=== PATIENT | male | born 1950 | race Caucasian/White ===

== ENCOUNTER 2017-09-03 19:18 | Emergency (ER) | payer MEDICARE, BC ==
[~2017-09-03] VITALS: Ht 177.8 cm; Wt 72.5 kg
[~2017-09-03 19:18] MED LIST: METO-335 PO; PANT40TA4 PO
[2017-09-03 19:32] VITALS: Ht 177.8 cm; Wt 72.5 kg
[2017-09-03] MEDS ORDERED: IPRATROPIUM (NEB) 0.5 MG/2.5 ML AMP INH STA (23:13)
[2017-09-03] MEDS ORDERED: ALBUTEROL 0.5% (NEB) 2.5 MG/0.5 ML AMP INH STA (23:13)
[2017-09-03] MEDS ORDERED: METHYLPREDNISOLONE 125 MG INJ IV STA (23:13)
--- NOTE | 2017-09-03 23:18 | ERD ---
ER Documentation Chief Complaint Chief Complaint cough and chest painx 1 day. runny nose, afebrile. +smoker HPI This is a 66-year-old gentleman, smoker who presents the emergency room with multiple complaints including runny nose, dry nonproductive cough that is constant and persistent with chest pain that is usually worse with coughing, nonpleuritic. The patient denies any fevers at home. He denies any shortness of breath when laying flat, no lower extremity swelling and no pleuritic pain. No recent travel sick contacts or antibiotics. The patient states that he did not smoke today because he was coughing. He states that he has never been diagnosed with COPD or emphysema. ROS All systems reviewed and are negative except as per history of present illness. Medications Home Meds Active Scripts Prednisone* (Prednisone*) 20 Mg Tab, 40 MG PO DAILY for 4 Days, TAB Prov:MIGEL OLIVARES MD 09/04/17 Hydrocodone Bit/Homatrop Me-Br ([place] 5-1.5 mg Tablet) 1 Each Tablet, 1 EACH PO TID Y for COUGH, #12 TAB Prov:MIGEL OLIVARES MD 09/04/17 Oseltamivir Phosphate* (Tamiflu*) 75 Mg Capsule, 75 MG PO BID for 5 Days, CAP Prov:MIGEL OLIVARES MD 09/04/17 Azithromycin* (Zithromax*) 250 Mg Tablet, 250 MG PO .ZPACK DIRECTED, #6 TAB TAKE 500 MG (2 TABS) THE FIRST DAY THEN 250 MG (1 TAB) DAYS 2-5 Prov:MIGEL OLIVARES MD 09/04/17 Albuterol Sulfate* (Ventolin HFA*) 18 Gm Hfa.aer.ad, 2 PUFF INHALATION Q4H, #1 INHALER Prov:MIGEL OLIVARES MD 09/04/17 Metoprolol Succinate* (Toprol XL*) 25 Mg Tabsr, 25 MG PO BID for 30 Days Prov:SCARLET DORANTES 10/25/15 Pantoprazole* (Pantoprazole*) 40 Mg Tabec, 40 MG PO BID for 30 Days Prov:SCARLET DORANTES 10/25/15 Allergies Allergies: Coded Allergies: No Known Drug Allergy (Verified Allergy, Unknown, 05/19/08) PMhx/Soc History of Surgery: No Hx Respiratory Disorders: No Hx Cardiac Disorders: Yes (HTN) Hx Psychiatric Problems: No Hx Miscellaneous Medical Probl: No Hx Alcohol Use: No (REFUSED TO ASWER) Hx Substance Use: No (REFUSED TO ASWER) Hx Tobacco Use: No (PT REFUSED TO ASWER) FmHx Family History: No diabetes Physical Exam Vitals Vital Signs Date Time Temp Pulse Resp B/P Pulse Ox O2 Delivery O2 Flow Rate FiO2 09/04/17 00:44 94 Room Air 09/03/17 23:28 Nasal Cannula 2 09/03/17 23:28 Nasal Cannula 2.0 09/03/17 23:25 94 24 95 21 09/03/17 19:32 98.7 104 18 154/106 95 Physical Exam General: Coughing but talking in full sentences, slight tachypnea Head: Normocephalic, atraumatic. Eyes: Pupils equally reactive, EOM intact ENT: Moist mucous membranes Neck: Supple, no lymphadenopathy Respiratory: Slight tachypnea, wheezing diffusely but good aeration, no respiratory distress Cardiovascular: RRR, no murmurs, rubs, or gallops Abdominal: Soft, non-tender, non-distended, no peritoneal signs : Deferred MSK: No edema, no unilateral swelling, 5/5 strength Neurologic: Alert and oriented, moving all extremities, normal speech, no focal weakness, no cerebellar signs Skin: No rash Psych: Normal mood Result Diagram: 09/03/17 2320 09/03/17 2320 Results 24 hrs Laboratory Tests Test 09/03/17 23:20 White Blood Count 9.310^3/ul Red Blood Count 4.2210^6/ul Hemoglobin 13.6g/dl Hematocrit 40.1% Mean Corpuscular Volume 95.0fl Mean Corpuscular Hemoglobin 32.2pg Mean Corpuscular Hemoglobin Concent 33.9g/dl Red Cell Distribution Width 14.2% Platelet Count 49801^3/UL Mean Platelet Volume 10.0fl Neutrophils % 74.9% Lymphocytes % 12.0% Monocytes % 11.5% Eosinophils % 1.0% Basophils % 0.3% Nucleated Red Blood Cells % 0.0/100WBC Neutrophils # 7.010^3/ul Lymphocytes # 1.110^3/ul Monocytes # 1.110^3/ul Eosinophils # 0.110^3/ul Basophils # 0.010^3/ul Nucleated Red Blood Cells # 0.010^3/ul Sodium Level 141mmol/L Potassium Level 4.4mmol/L Chloride Level 105mmol/L Carbon Dioxide Level 24mmol/L Anion Gap 16 Blood Urea Nitrogen 18mg/dl Creatinine 0.98mg/dl Glucose Level 106mg/dl Calcium Level 9.3mg/dl Troponin I < 0.012ng/ml Current Medications Medications (Trade) Dose Ordered Sig/[place] Route PRN Reason Start Time Stop Time Status Last Admin Dose Admin Albuterol (Proventil 0.5% (Neb)) 10 mg ONCE STAT INH 09/03/17 23:13 09/03/17 23:14 DC 09/03/17 23:25 Ipratropium [place] (Atrovent 0.02% (Neb)) 1 mg ONCE STAT INH 09/03/17 23:13 09/03/17 23:14 DC 09/03/17 23:25 Methylprednisolone Sodium Succinate (Solu-Medrol) 125 mg ONCE STAT IV 09/03/17 23:13 09/03/17 23:14 DC 09/03/17 23:25 Acetaminophen/ Hydrocodone Bitart 5 ml 5 ml ONCE ONCE PO 09/04/17 01:30 09/04/17 01:31 DC 09/04/17 01:57 Sodium Chloride (NS) 1,000 ml @ 1,000 mls/hr Q1H STAT IV 09/04/17 01:11 09/04/17 02:10 DC 09/04/17 01:13 Procedures/MDM EKG, MONITORS, & DIAGNOSTIC IMAGING: EKG: I reviewed and interpreted a 12-lead EKG. Rhythm: Normal sinus rhythm Ectopy: None Intervals: No abnormalities ST segments: No elevations or depressions T waves: No contiguous inversions Chest x-ray: Chest x-ray: I reviewed and interpreted a 1 view of the chest Mediastinum: No enlargement Cardiac silhouette: No cardiomegaly Airspace: Clear lung eckert bilaterally without evidence of pneumothorax Bones: No evidence of fracture LAB INTERPRETATION: No leukocytosis, negative troponin MEDICAL DECISION MAKING: The patient likely has undiagnosed COPD or emphysema given his lifelong smoking history. The patient is wheezing diffusely. This is likely a viral process triggering COPD or emphysema exacerbation. The patient will benefit from breathing treatment and steroids. Low threshold for antibiotics. Chest x-ray would be appropriate. The patient describes chest pain but only with coughing and this is most likely musculoskeletal and secondary to the cough. Low concern for pulmonary embolism or acute coronary syndrome however given the patient's age I do believe an EKG and troponin would be reasonable. The patient has had 24-48 hours of constant symptoms therefore I do not believe serial enzymes or inpatient hospitalization for cardiac workup is necessary. ER COURSE: The patient was given an hour-long. He was given Solu-Medrol. Smoking Cessation: I had a greater than 3 minute conversation with the patient regarding smoking cessation. We discussed multiple alternatives. The patient had tachycardia after the breathing treatment. He was given a liter of saline and cough medication. The patient's tachycardia was initially 120 and is now 104. The patient is feeling better. His lung exam is improving. The patient at this point have no evidence of pneumonia on chest x- ray. He has no leukocytosis. No evidence of cardiac process. At this point I feel the patient is safe for outpatient management. I discussed return precautions the patient verbalized understanding. I kept the patient and/or family informed of laboratory and diagnostic imaging results throughout the emergency room course. DISPOSITION PLAN: We discussed follow up with the patient's primary care doctor within 24 to 48 hours as needed. We also discussed return to the emergency room for worsening symptoms or worsening condition. Outpatient referral: [None required] Discharge Medications: The patient will be given albuterol, Tamiflu, azithromycin, prednisone Departure Diagnosis: Primary Impression: COPD exacerbation Condition: Stable MIGEL OLIVARES MD Sep 03, 2017 23:18
[2017-09-03 23:41] LABS: BASOPHILS % 0.3 % (0.0-2.0); EOSINOPHILS # 0.1 10^3/ul (0.0-0.5); HEMATOCRIT 40.1 % (42.0-52.0); HEMOGLOBIN 13.6 g/dl (14.0-18.0); LYMPHOCYTES # 1.1 10^3/ul (0.8-2.9); MEAN CORPUSCULAR HEMOGLOBIN 32.2 pg (29.0-33.0); MEAN CORPUSCULAR HGB CONC 33.9 g/dl (32.0-37.0); MONOCYTE # 1.1 10^3/ul (0.3-0.9); MONOCYTES % 11.5 % (0.0-11.0); NEUTROPHILS % 74.9 % (39.0-77.0); PLATELET COUNT 231 10^3/UL (140-415); RED BLOOD COUNT 4.22 10^6/ul (4.70-6.10); RED CELL DISTRIBUTION WIDTH 14.2 % (11.5-14.5); WHITE BLOOD COUNT 9.3 10^3/ul (4.8-10.8)
[2017-09-03 23:58] LABS: ANION GAP 16 (8-16); BLOOD UREA NITROGEN 18 mg/dl (7-20); CALCIUM 9.3 mg/dl (8.4-10.2); CARBON DIOXIDE 24 mmol/L (21-31); CHLORIDE 105 mmol/L (97-110); CREATININE 0.98 mg/dl (0.61-1.24); GLUCOSE 106 mg/dl (70-220); POTASSIUM 4.4 mmol/L (3.5-5.1); SODIUM 141 mmol/L (135-144)
--- NOTE | 2017-09-04 00:06 | RADRPT ---
PROCEDURE: XR Chest. CLINICAL INDICATION: Asthma exacerbation. Shortness of breath. TECHNIQUE: Single frontal view. COMPARISON: October 22, 2015. FINDINGS: There is mild scarring in the left lung. The lungs are otherwise clear. Surgical clips overlie the l eft lower chest. The heart size is normal. There is no pleural effusion. There is no pneumothorax. IMPRESSION: 1. Mild scarring in the left lung. 2. Surgical clips overlying the left lower chest. 3. Otherwise unremarkable chest radiograph. RPTAT: QQ .Khoa Velez MD, MD Date Time Electronically viewed and signed by .Khoa Velez MD, MD on 09/04/2017 00:05 .R/
[2017-09-04 00:18] LABS: TROPONIN-I < 0.012 ng/ml (0.00-0.12)
[2017-09-04] MEDS ORDERED: SOD CHLORIDE 0.9% 1,000 ML IV STA (01:11)
[2017-09-04] MEDS ORDERED: ACETAMINOPHEN 325/HYDROC 7.5 15 ML CUP PO ONE (01:30)
[2017-09-04 02:00] VITALS: BP 141/78; PULSE 115; RESP 21
[2017-09-04] MEDS ORDERED: PRED20TA PO (02:07)
[2017-09-04] MEDS ORDERED: AZIT250T94 PO (02:07)
[2017-09-04] MEDS ORDERED: HYDR-3652 PO (02:07)
[2017-09-04] MEDS ORDERED: OSLT75C PO (02:07)
[2017-09-04] MEDS ORDERED: ALBU18HF INHALATION (02:07)
[2017-09-04 02:56] VITALS: TEMP 99.3
== END 2017-09-04 02:57 | disposition home or self-care (01) ==
LOC: E/R 19:18
DX: J44.1 Chronic obstructive pulmonary disease with (acute) exacerbation (principal); I10 Essential (primary) hypertension
CPT/HCPCS: 71010; 80048; 84484; 85025; 93005; 94644; 96374; 99285; J2930; J7030

== ENCOUNTER 2017-12-07 02:24 | Inpatient (IN) | END 2017-12-09 14:00 | disposition home or self-care (01) | DRG 392 ==

== ENCOUNTER 2018-08-07 05:53 | Inpatient (IN) | END 2018-08-12 16:43 | disposition home or self-care (01) | DRG 199 ==

== ENCOUNTER 2018-11-16 20:39 | Emergency (ER) | payer MEDICARE, BC ==
[~2018-11-16] VITALS: Ht 172.7 cm; Wt 78.4 kg
[~2018-11-16 20:39] MED LIST changes: +ALBU18HF INHALATION; +AMLO-147 PO; +HYDR-3601 PO; +HYDR-3671 PO; -METO-335 PO; -PANT40TA4 PO
[2018-11-16 21:29] VITALS: Ht 172.7 cm; Wt 78.4 kg
[2018-11-17] MEDS ORDERED: PIPER-TAZO 3.375 GM IV (PMX) 100 ML IVPB ONE (04:30)
[2018-11-17] MEDS ORDERED: IBUP-1542 PO (04:31)
[2018-11-17 05:21] VITALS: PULSE 83; RESP 18
[2018-11-17 05:25] VITALS: BP 156/103
--- NOTE | 2018-11-17 05:28 | ERD ---
ER Documentation Chief Complaint Chief Complaint redness pain to s/p removed pleurex drain site. drain removed 08/12 +SOB HPI This is a 8-year-old male comes in with redness and erythema a chest tube site. Patient elected to place to free with finger. He still complains of severe erythema and induration at this site. Denies any drainage. Denies any fevers or chills. Denies any nausea vomiting. Denies any other current complaints. Denies any shortness of breath. ROS All systems reviewed and are negative except as per history of present illness. Medications Home Meds Active Scripts Hydrocodone Bit-Acetaminophen (Hydrocodone Bit-APAP) 5-325MG Tablet, 1 TAB PO Q6H PRN for PAIN LEVEL 4-6, #20 TAB Prov:SCARLET DORANTES 08/12/18 Hydralazine Hcl* (Hydralazine Hcl*) 25 Mg Tab, 25 MG PO Q8, #90 TAB Prov:SCARLET DORANTES 12/09/17 Reported Medications Ibuprofen* (Ibuprofen*) 600 Mg Tablet, 600 MG PO DAILY PRN for PAIN 11/17/18 Albuterol Sulfate* (Ventolin HFA*) 18 Gm Hfa.aer.ad, 2 PUFF INHALATION Q4H, #1 INHALER 08/07/18 Amlodipine Besylate* (Amlodipine Besylate*) 10 Mg Tablet, 10 MG PO DAILY, #30 TAB 08/07/18 Allergies Allergies: Coded Allergies: No Known Drug Allergy (Unverified Allergy, Unknown, 11/17/18) PMhx/Soc Medical and Surgical Hx: pt denies Surgical Hx History of Surgery: No Anesthesia Reaction: No Hx Neurological Disorder: No Hx Respiratory Disorders: No Hx Cardiac Disorders: Yes (HTN) Hx Psychiatric Problems: No Hx Miscellaneous Medical Probl: No Hx Alcohol Use: Yes Hx Substance Use: No Hx Tobacco Use: Yes Smoking Status: Current every day smoker Physical Exam Vitals Vital Signs Date Temp Pulse Resp B/P (MAP) Pulse Ox O2 O2 Flow FiO2 Time Delivery Rate 11/17/18 156/103 05:25 (120) 11/17/18 97.8 83 18 175/106 93 Room Air 05:21 (129) 11/17/18 98.3 72 20 144/89 96 Room Air 02:00 (107) 11/16/18 98.8 86 20 149/95 94 21:29 (113) Physical Exam Const: No acute distress Head: Atraumatic Eyes: Normal Conjunctiva ENT: Normal External Ears, Nose and Mouth. Neck: Full range of motion. No meningismus. Resp: Clear to auscultation bilaterally Cardio: Regular rate and rhythm, no murmurs Abd: Soft, non tender, non distended. Normal bowel sounds Skin: Erythema and induration noted in the right mid axillary chest Ribs 4-5. Approximately 4 x 4 area of induration and erythema. No fluctuance. Noted. No drainage noted. Back: No midline or flank tenderness Ext: No cyanosis, or edema Neur: Awake and alert Psych: Normal Mood and Affect Result Diagram: 11/17/1811711/17/18117 Results 24 hrs Laboratory Tests Test 11/17/18 01:18 White Blood Count 8.4 10^3/ul Red Blood Count 4.27 10^6/ul Hemoglobin 13.4 g/dl Hematocrit 40.1 % Mean Corpuscular Volume 93.9 fl Mean Corpuscular Hemoglobin 31.4 pg Mean Corpuscular Hemoglobin Concent 33.4 g/dl Red Cell Distribution Width 14.1 % Platelet Count 219 10^3/UL Mean Platelet Volume 9.6 fl Immature Granulocytes % 0.600 % Neutrophils % 65.9 % Lymphocytes % 20.6 % Monocytes % 9.9 % Eosinophils % 2.5 % Basophils % 0.5 % Nucleated Red Blood Cells % 0.0 /100WBC Immature Granulocytes # 0.050 10^3/ul Neutrophils # 5.5 10^3/ul Lymphocytes # 1.7 10^3/ul Monocytes # 0.8 10^3/ul Eosinophils # 0.2 10^3/ul Basophils # 0.0 10^3/ul Nucleated Red Blood Cells # 0.0 10^3/ul Sodium Level 141 mmol/L Potassium Level 4.0 mmol/L Chloride Level 104 mmol/L Carbon Dioxide Level 26 mmol/L Anion Gap 11 Blood Urea Nitrogen 12 mg/dl Creatinine 0.75 mg/dl Est Glomerular Filtrat Rate mL/min > 60 mL/min Glucose Level 100 mg/dl Calcium Level 9.6 mg/dl Total Bilirubin 0.5 mg/dl Direct Bilirubin 0.00 mg/dl Indirect Bilirubin 0.5 mg/dl Aspartate Amino Transf (AST/SGOT) 31 IU/L Alanine Aminotransferase (ALT/SGPT) 23 IU/L Alkaline Phosphatase 70 IU/L Total Protein 7.5 g/dl Albumin 3.9 g/dl Globulin 3.60 g/dl Albumin/Globulin Ratio 1.08 Lipase 351 U/L Current Medications Medications Dose Sig/[place] Start Time Status Last (Trade) Ordered Route PRN Stop Time Admin Dose Reason Admin Piperacillin 100 ml @ ONCE ONCE 11/17/18 DC 11/17/18 Sod/ 200 mls/hr IVPB 04:30 05:13 Tazobactam 11/17/18 04:59 Sod Procedures/MDM Medical decision makin 8-year-old male with erythema and induration likely cellulitis of the chest wall. At this point is clinically stable afebrile with normal white count is stable for trial of outpatient management. Patient will be discharged home with Bactrim and Keflex. He is to follow-up with his primary care physician to primary care for worsening symptoms. Departure Diagnosis: Primary Impression: Cellulitis Site of cellulitis: unspecified site Qualified Codes: L03.90 - Cellulitis, unspecified Condition: Stable NICOLE CALLAWAY Nov 17, 2018 05:28
[2018-11-17] MEDS ORDERED: AMOX1TAB10 PO (05:29)
[2018-11-17] MEDS ORDERED: SULF1TAB31 PO (05:29)
== END 2018-11-17 05:49 | disposition home or self-care (01) ==
LOC: E/R 20:39
DX: L03.313 Cellulitis of chest wall (principal); I10 Essential (primary) hypertension; F17.210 Nicotine dependence, cigarettes, uncomplicated
CPT/HCPCS: 36415; 71250; 80053; 83690; 85025; 87040; 96365; 99285; J2543

== ENCOUNTER 2018-12-27 20:36 | Inpatient (IN) | payer MEDICARE, BC ==
[~2018-12-27] VITALS: Ht 182.9 cm; Wt 73.5 kg
[~2018-12-27 20:36] MED LIST changes: +AMOX1TAB10 PO; +IBUP-1542 PO; +SULF1TAB31 PO
[2018-12-27] MEDS ORDERED: ALBUTEROL 0.5% (NEB) 2.5 MG/0.5 ML AMP INH STA (20:43)
[2018-12-27] MEDS ORDERED: METHYLPREDNISOLONE 125 MG INJ IV STA (20:43)
--- NOTE | 2018-12-27 20:46 | ERD ---
ER Documentation Chief Complaint Chief Complaint HPI 68-year-old man with a history of COPD brought in by EMS from home for shortness of breath, difficulty breathing. He states he has been using albuterol pump at home without relief. He has a recent history of left pneumothorax status post thoracostomy tube removal a few weeks ago. He denies chest pain, no fevers or chills, no vomiting or diarrhea. Patient was transported here tachycardic tachypnea, dyspneic ROS All systems reviewed and are negative except as per history of present illness. Medications Home Meds Active Scripts Sulfamethoxazole/Trimethoprim* (Bactrim Ds* Tablet) 1 Each Tablet, 1 TAB PO BID, #14 TAB Prov:NICOLE CALLAWAY 11/17/18 Amoxicillin/Potassium Clav (Amox-Clav 875-125 mg Tablet) 875-125 mg Tab, 1 TAB PO BID for 7 Days, #14 TAB Prov:NICOLE CALLAWAY 11/17/18 Hydrocodone Bit-Acetaminophen (Hydrocodone Bit-APAP) 5-325MG Tablet, 1 TAB PO Q6H PRN for PAIN LEVEL 4-6, #20 TAB Prov:SCARLET DORANTES 08/12/18 Hydralazine Hcl* (Hydralazine Hcl*) 25 Mg Tab, 25 MG PO Q8, #90 TAB Prov:SCARLET DORANTES 12/09/17 Reported Medications Ibuprofen* (Ibuprofen*) 600 Mg Tablet, 600 MG PO DAILY PRN for PAIN 11/17/18 Albuterol Sulfate* (Ventolin HFA*) 18 Gm Hfa.aer.ad, 2 PUFF INHALATION Q4H, #1 INHALER 08/07/18 Amlodipine Besylate* (Amlodipine Besylate*) 10 Mg Tablet, 10 MG PO DAILY, #30 TAB 08/07/18 Allergies Allergies: Coded Allergies: No Known Drug Allergy (Unverified Allergy, Unknown, 11/17/18) PMhx/Soc COPD, recent left-sided tension pneumothorax status post thoracostomy tube removal, hypertension, gastritis History of Surgery: No Anesthesia Reaction: No Hx Neurological Disorder: No Hx Respiratory Disorders: No Hx Cardiac Disorders: Yes (HTN) Hx Psychiatric Problems: No Hx Miscellaneous Medical Probl: No Hx Alcohol Use: Yes Hx Substance Use: No Hx Tobacco Use: Yes Physical Exam Vitals Vital Signs Date Temp Pulse Resp B/P (MAP) Pulse Ox O2 O2 Flow FiO2 Time Delivery Rate 12/27/18 116 22 98 Nasal 3.0 21:16 Cannula 12/27/18 3.0 21:16 12/27/18 Nasal 20:48 Cannula 12/27/18 98.7 85 19 181/138 94 20:42 (152) Physical Exam Const: Well-developed well-nourished, anxious, dyspneic, tachycardic, afebrile HEENT: Dry mucous membranes, pink conjunctive a, no cervical spine deformity or tenderness Resp: Poor breath sounds bilaterally, no crackles Cardio: Tachycardic and regular Abd: Soft, non tender, non distended. Normal bowel sounds Skin: No petechiae or rashes Back: No midline or flank tenderness Ext: No cyanosis, or edema. Calves symmetrical Neur: Awake and alert x3, no focal deficits or facial asymmetry, tremulous, pupils equal round reactive to light, no focal deficits Psych: Tremulous and anxious Result Diagram: 12/27/18211912/27/182049 Results 24 hrs Laboratory Tests Test 12/27/18 20:43 12/27/18 20:50 12/27/18 21:20 Blood Gas Specimen Source Blood arterial Arterial Blood Date Drawn 12/27/2018 8:56:56 PM Arterial Blood pH 7.428 (Temp corrected) Arterial Blood pCO2 41.3 mmhg (Temp correct) Arterial Blood pO2 72.0 mmHG (Temp corrected) Arterial Blood HCO3 26.7 mmol/L Arterial Blood Base Excess 2.1 mmol/L Arterial Blood 94.6 mmHG Oxygen Saturation Pancho Test ACCEPTAB Arterial Blood Gas Left Radial Puncture Site Arterial 0.5 % Blood Carboxyhemoglobin Arterial Blood 0.3 % Methemoglobin Blood Gas A-a O2 93.4 mmHg Differential Oxyhemoglobin Percent 93.8 % Blood Gas Temperature 37.0 C Blood Gas Actual 20 Respiration Rate Blood Gas Modality NASAL CANNULA FiO2 30.0 % Blood Gas Notified Car PEDROZA RCP Blood Gas Notified Time 12/27/2018 9:04:23 PM Sodium Level 144 mmol/L Potassium Level 4.5 mmol/L Chloride Level 100 mmol/L Carbon Dioxide Level 23 mmol/L Anion Gap 21 Blood Urea Nitrogen 18 mg/dl Creatinine 1.01 mg/dl Est Glomerular Filtrat > 60 mL/min Rate mL/min Glucose Level 145 mg/dl Calcium Level 10.5 mg/dl Total Bilirubin 0.8 mg/dl Direct Bilirubin 0.00 mg/dl Indirect Bilirubin 0.8 mg/dl Aspartate Amino 52 IU/L Transf (AST/SGOT) Alanine 40 IU/L Aminotransferase (ALT/SGPT ) Alkaline Phosphatase 117 IU/L Troponin I < 0.012 ng/ml B-Type Natriuretic Peptide 42 PG/ML Total Protein 9.1 g/dl Albumin Pending Globulin 4.30 g/dl Albumin/Globulin Ratio 1.11 Lipase 147 U/L White Blood Count 10.7 10^3/ul Red Blood Count 4.70 10^6/ul Hemoglobin 14.7 g/dl Hematocrit 43.8 % Mean Corpuscular Volume 93.2 fl Mean Corpuscular 31.3 pg Hemoglobin Mean Corpuscular 33.6 g/dl Hemoglobin Concent Red Cell Distribution 13.7 % Width Platelet Count 266 10^3/UL Mean Platelet Volume 8.8 fl Immature Granulocytes % 0.300 % Neutrophils % 84.4 % Lymphocytes % 11.5 % Monocytes % 3.2 % Eosinophils % 0.0 % Basophils % 0.6 % Nucleated Red Blood Cells 0.0 /100WBC % Immature Granulocytes # 0.030 10^3/ul Neutrophils # 9.1 10^3/ul Lymphocytes # 1.2 10^3/ul Monocytes # 0.3 10^3/ul Eosinophils # 0.0 10^3/ul Basophils # 0.1 10^3/ul Nucleated Red Blood Cells 0.0 10^3/ul # Current Medications Medications Dose Sig/[place] Start Time Status Last (Trade) Ordered Route PRN Stop Time Admin Dose Reason Admin Albuterol 10 mg ONCE STAT 12/27/18 DC 12/27/18 (Proventil INH 20:43 21:01 0.5% (Neb)) 12/27/18 20:57 125 mg ONCE STAT 12/27/18 DC 12/27/18 Methylprednis IV 20:43 21:08 olone Sodium 12/27/18 20:57 Succinate (Solu-Medrol) Lorazepam 1 mg ONCE ONCE 12/27/18 DC 12/27/18 (Ativan) IV 21:00 21:08 12/27/18 21:01 Aspirin 162 mg ONCE ONCE 12/27/18 DC 12/27/18 (Aspirin) PO 21:00 21:10 12/27/18 21:01 Sodium 500 ml @ Q1H STAT 12/27/18 12/27/18 Chloride 500 mls/hr IV 20:51 21:01 12/27/18 21:50 IV Flush 3 ml PER 12/27/18 (NS 3 ml) PROTOCOL IV 21:30 Ondansetron 4 mg Q6H PRN 12/27/18 HCl (Zofran IV 21:30 Inj) NAUSEA/VOMITI NG 650 mg Q6H PRN 12/27/18 Acetaminophen PO .PAIN 1-3 21:30 (Tylenol OR TEMP Tab) Morphine 2 mg Q4H PRN 12/27/18 Sulfate IV .PAIN 21:30 (morphine) 7-10 Famotidine 20 mg Q12 IV 12/28/18 (Pepcid Iv) 09:00 Enoxaparin 30 mg DAILY SC 12/28/18 Sodium 09:00 (Lovenox) Albuterol 1.25 mg Q6H RESP 12/27/18 (Proventil THERAPY PRN 21:30 0.083% (Neb)) HHN shortness of breath 60 mg Q12 IV 12/28/18 Methylprednis 09:00 olone Sodium Succinate (Solu-Medrol) Procedures/MDM IV line was established patient was placed on director of cardiac rehabilitation rhythm strip revealed a sinus tachycardia at 130 bpm. Patient was afebrile. EKG performed, read by me revealed a sinus tachycardia at 122 bpm, normal axis, narrow QRS complex, no concerning ST elevations or depressions noted. 1 view chest x-ray performed, read by me revealed atelectatic changes bilaterally, no acute infiltrates, no pneumothorax. I administered lorazepam 1 mg IV for anxiety, albuterol 10 mg via nebulizer, methylprednisolone 125 mg IV x1, aspirin 162 mg p.o. for cardioprotective measures, and 500 cc normal saline IV Critical Care: Time: 39 minutes, this was time separate from other billable procedures. Treatments/Evaluations: Close monitoring and treatment of unstable vital signs, cardiorespiratory, and neurologic status, while maintaining tight balance of fluid, respiratory, and cardiac interventions. CBC was normal, electrolytes revealed dehydration with increased BUN creatinine ratio, liver function tests normal, troponin negative, BNP low. ABG performed, read by me revealed a pH of 7.43, PCO2 41, PO2 72. ABG normal. Patient admitted to telemetry setting for continued medical management and bronchodilator therapy. Departure Diagnosis: Primary Impression: COPD (chronic obstructive pulmonary disease) COPD type: COPD with acute exacerbation Qualified Codes: J44.1 - Chronic obstructive pulmonary disease with (acute) exacerbation Additional Impression: Dehydration Condition: MEGHAN Sepulveda MD Dec 27, 2018 20:46
[2018-12-27] MEDS ORDERED: SOD CHLORIDE 0.9% 500 ML IV STA (20:51)
[2018-12-27] MEDS ORDERED: ASPIRIN 81 MG TAB PO ONE (21:00)
[2018-12-27] MEDS ORDERED: LORAZEPAM 2 MG INJ IV ONE (21:00)
[2018-12-27] MEDS ORDERED: morphine 2 MG INJ IV PRN (21:30)
[2018-12-27] MEDS ORDERED: ACETAMINOPHEN 325 MG TAB PO PRN (21:30)
[2018-12-27] MEDS ORDERED: NACL 0.9% 3 ML SYG IV SCH (21:30)
[2018-12-27] MEDS ORDERED: ALBUTEROL 0.083% (NEB) 2.5 MG/3 ML AMP HHN PRN (21:30)
[2018-12-27] MEDS ORDERED: ONDANSETRON 4 MG INJ IV PRN (21:30)
[2018-12-28] VITALS (10 sets, daily range): BP systolic 140–163; BP diastolic 80–97; PULSE 85–109; RESP 18–20
[2018-12-28] MEDS ORDERED: FAMOTIDINE 20 MG INJ IV SCH (09:00)
[2018-12-28] MEDS: METHYLPREDNISOLONE 125 MG INJ IV SCH ×2 (09:38→23:09)
[2018-12-28] MEDS: ENOXAPARIN 30 MG/0.3 ML SYG SC SCH (09:40)
[2018-12-28] MEDS ORDERED: LORAZEPAM 0.5 MG TAB PO PRN (13:00)
--- NOTE | 2018-12-28 13:00 | HP ---
Date/Time of Note Date/Time of Note DATE: 12/28/18 TIME: 12:58 Assessment/Plan VTE Prophylaxis Risk score (from Ns)>0 risk: 4 SCD applied (from Ns): Yes Pharmacological prophylaxis: LMWH Lines/Catheters IV Catheter Type (from Nrs): Saline Lock Assessment/Plan Hospital Course 1) COPD - continue breathing treatments and IV steroids - monitor clinically Result Diagram: 12/28/18 0540 12/28/18 0540 Results 24hrs Laboratory Tests Test 12/27/18 20:43 12/27/18 20:50 12/27/18 21:20 12/28/18 05:40 Blood Gas Blood arterial Specimen Source Arterial Blood 12/27/2018 8:56:5 Date Drawn 6 PM Arterial Blood pH 7.428 (Temp corrected) Arterial Blood 41.3 pCO2 (Temp correct) Arterial Blood 72.0 L pO2 (Temp corrected) Arterial Blood 26.7 H HCO3 Arterial Blood 2.1 Base Excess Arterial Blood 94.6 L Oxygen Saturation Pancho Test ACCEPTAB Arterial Blood Left Radial Gas Puncture Site Arterial 0.5 Blood Carboxyhemo globin Arterial Blood 0.3 Methemoglobin Blood Gas A-a O2 93.4 H Differential Oxyhemoglobin 93.8 Percent Blood Gas 37.0 Temperature Blood Gas Actual 20 Respiration Rate Blood Gas NASAL CANNULA Modality FiO2 30.0 Blood Gas Quentin [facility] Notified Whom Blood Gas 12/27/2018 9:04:2 Notified Time 3 PM Sodium Level 144 139 Potassium Level 4.5 4.1 Chloride Level 100 97 Carbon Dioxide 23 29 Level Anion Gap 21 H 13 # Blood Urea 18 19 Nitrogen Creatinine 1.01 0.82 Est Glomerular > 60 > 60 Filtrat Rate mL/min Glucose Level 145 179 Calcium Level 10.5 H 9.7 Total Bilirubin 0.8 0.8 Direct Bilirubin 0.00 0.00 Indirect 0.8 0.8 Bilirubin Aspartate Amino 52 H 37 Transf (AST/SGOT) Alanine 40 40 Aminotransferase (ALT/SGPT) Alkaline 117 85 Phosphatase Troponin I < 0.012 B-Type 42 Natriuretic Peptide Total Protein 9.1 H 7.5 # Albumin 4.8 4.1 Globulin 4.30 H 3.40 H Albumin/Globulin 1.11 1.20 Ratio Lipase 147 White Blood Count 10.7 # 6.8 # Red Blood Count 4.70 4.53 L Hemoglobin 14.7 14.3 Hematocrit 43.8 42.0 Mean Corpuscular 93.2 92.7 Volume Mean Corpuscular 31.3 31.6 Hemoglobin Mean Corpuscular 33.6 34.0 Hemoglobin Concen t Red Cell 13.7 14.0 Distribution Width Platelet Count 266 # 252 Mean Platelet 8.8 9.2 Volume Immature 0.300 0.300 Granulocytes % Neutrophils % 84.4 H 91.6 H Lymphocytes % 11.5 L 7.6 L Monocytes % 3.2 0.4 Eosinophils % 0.0 0.0 Basophils % 0.6 0.1 Nucleated Red 0.0 0.0 Blood Cells % Immature 0.030 0.020 Granulocytes # Neutrophils # 9.1 H 6.2 Lymphocytes # 1.2 0.5 L Monocytes # 0.3 0.0 L Eosinophils # 0.0 0.0 Basophils # 0.1 0.0 Nucleated Red 0.0 0.0 Blood Cells # Hemoglobin A1c 5.4 HPI/ROS Admit Date/Time Admit Date/Time Dec 27, 2018 at 21:18 Hx of Present Illness Patient with a history of COPD comes in with increasing shortness of breath. Patient has come in with the same problem in the past PMH/Family/Social Past Medical History Medications Current Medications IV Flush (NS 3 ml) 3 ml PER PROTOCOL IV ; Start 12/27/18 at 21:30 Ondansetron HCl (Zofran Inj) 4 mg Q6H PRN IV NAUSEA/VOMITING; Start 12/27/18 at 21:30 Acetaminophen (Tylenol Tab) 650 mg Q6H PRN PO .PAIN 1-3 OR TEMP; Start 12/27/18 at 21:30 Morphine Sulfate (morphine) 2 mg Q4H PRN IV .PAIN 7-10; Start 12/27/18 at 21:30 Famotidine (Pepcid Iv) 20 mg Q12 IV Last administered on 12/28/18at 09:38; Admin Dose 20 MG; Start 12/28/18 at 09:00 Enoxaparin Sodium (Lovenox) 30 mg DAILY SC Last administered on 12/28/18at 09:40; Admin Dose 30 MG; Start 12/28/18 at 09:00 Albuterol (Proventil 0.083% (Neb)) 1.25 mg Q6H RESP THERAPY PRN HHN shortness of breath; Start 12/27/18 at 21:30 Methylprednisolone Sodium Succinate (Solu-Medrol) 60 mg Q12 IV Last administered on 12/28/18at 09:38; Admin Dose 60 MG; Start 12/28/18 at 09:00 Lorazepam (Ativan) 0.5 mg Q6H PRN PO ANXIETY; Start 12/28/18 at 13:00; Status UNV Coded Allergies: No Known Drug Allergy (Unverified Allergy, Unknown, 11/17/18) Past Surgical History Past Surgical Hx: other Family History Significant Family History: no pertinent family hx Social History Smoking Status: Former smoker Exam/Review of Systems Vital Signs Vitals Vital Signs Date Temp Pulse Resp B/P (MAP) Pulse Ox O2 O2 Flow FiO2 Time Delivery Rate 12/28/18 102 10:56 12/28/18 Nasal 3.0 09:47 Cannula 12/28/18 98.9 20 140/90 95 08:01 (107) 12/28/18 27 06:22 Intake and Output 12/27/18 12/27/18 12/28/18 1515:00 23:00 07:00 IntakeIntake Total 200 ml BalanceBalance 200 ml Exam Constitutional: well developed Head: normocephalic, atraumatic Neck: supple Respiratory: diminished breath sounds Cardiovascular: regular rate and rhythm Gastrointestinal: soft, non-tender Extremities: normal pulses ILAN COPPOLA Dec 28, 2018 13:00
[2018-12-28] MEDS: FAMOTIDINE 20 MG TAB PO SCH (23:09)
[2018-12-29] VITALS (15 sets, daily range): BP systolic 134–159; BP diastolic 64–105; PULSE 55–115; RESP 18–20
[2018-12-29] MEDS: METHYLPREDNISOLONE 125 MG INJ IV SCH ×2 (09:18→22:45)
[2018-12-29] MEDS: FAMOTIDINE 20 MG TAB PO SCH ×2 (09:19→22:46)
[2018-12-29] MEDS: ENOXAPARIN 30 MG/0.3 ML SYG SC SCH (09:24)
--- NOTE | 2018-12-29 11:41 | CONS ---
Assessment/Plan Assessment/Plan Assessment/Plan (Daily) 1. Prerenal azotemia 2. acute COPD exacerbation 3. H/O COPD 4. H/o Pneumothorax s/p previous Chest tube placement 4. H/O HTN 5. H/o HL 6. H/o Smoking Plan: IV solumedrol, watch for BUN BP stable, Cardizem for rate control Cardiology has been following Will follow up . Thanks for consultation Consultation Date/Type/Reason Admit Date/Time Dec 27, 2018 at 21:18 Date of Consultation: Dec 29, 2018 Type of Consult NEPHROLOGY Reason for Consultation acute prerenal azotemia, alkalosis, Requesting Provider: JORGE HANNA MD Date/Time of Note DATE: 12/29/18 TIME: 11:41 Hx of Present Illness 68-year-old male with past medical history of COPD, hypertension who presents with progressive worsening shortness of breath of the past 10 days. Patient with cough, wheezing and shortness of breath. he gets admitted for COPD exacerbation H/o chest tube requirement before which was subsequently removed after that. He tells me he quit smoking approximately 6 months ago. Denies any current fevers or chills, dizziness. 12 point review of systems was performed with all pertinent positives and negatives mentioned above and all else is negative Constitutional: no complaints Eyes: no complaints ENT: congestion Respiratory: cough, pleuritic pain, shortness of breath Cardiovascular: no complaints Gastrointestinal: no complaints Genitourinary: no complaints Musculoskeletal: no complaints Skin: no complaints Neurologic: no complaints Endocrine: no complaints Lymphatic: no complaints Psychological: no complaints Immunologic: no complaints Past Medical History Medical History: high cholesterol, hypertension, other (anxiety, COPD, Pneumothorax ) Home Meds Active Scripts Sulfamethoxazole/Trimethoprim* (Bactrim Ds* Tablet) 1 Each Tablet, 1 TAB PO BID, #14 TAB Prov:NICOLE CALLAWAY 11/17/18 Amoxicillin/Potassium Clav (Amox-Clav 875-125 mg Tablet) 875-125 mg Tab, 1 TAB PO BID for 7 Days, #14 TAB Prov:NICOLE CALLAWAY 11/17/18 Hydrocodone Bit-Acetaminophen (Hydrocodone Bit-APAP) 5-325MG Tablet, 1 TAB PO Q6H PRN for PAIN LEVEL 4-6, #20 TAB Prov:SCARLET DORANTES 08/12/18 Hydralazine Hcl* (Hydralazine Hcl*) 25 Mg Tab, 25 MG PO Q8, #90 TAB Prov:SCARLET DORANTES 12/09/17 Reported Medications Ibuprofen* (Ibuprofen*) 600 Mg Tablet, 600 MG PO DAILY PRN for PAIN 11/17/18 Albuterol Sulfate* (Ventolin HFA*) 18 Gm Hfa.aer.ad, 2 PUFF INHALATION Q4H, #1 INHALER 08/07/18 Amlodipine Besylate* (Amlodipine Besylate*) 10 Mg Tablet, 10 MG PO DAILY, #30 TAB 08/07/18 Medications Current Medications IV Flush (NS 3 ml) 3 ml PER PROTOCOL IV ; Start 12/27/18 at 21:30 Ondansetron HCl (Zofran Inj) 4 mg Q6H PRN IV NAUSEA/VOMITING; Start 12/27/18 at 21:30 Acetaminophen (Tylenol Tab) 650 mg Q6H PRN PO .PAIN 1-3 OR TEMP; Start 12/27/18 at 21:30 Morphine Sulfate (morphine) 2 mg Q4H PRN IV .PAIN 7-10 Last administered on 12/29/18at 00:20; Admin Dose 2 MG; Start 12/27/18 at 21:30 Enoxaparin Sodium (Lovenox) 30 mg DAILY SC Last administered on 12/29/18at 09:24; Admin Dose 30 MG; Start 12/28/18 at 09:00 Albuterol (Proventil 0.083% (Neb)) 1.25 mg Q6H RESP THERAPY PRN HHN shortness of breath; Start 12/27/18 at 21:30 Methylprednisolone Sodium Succinate (Solu-Medrol) 60 mg Q12 IV Last administered on 12/29/18at 09:18; Admin Dose 60 MG; Start 12/28/18 at 09:00 Lorazepam (Ativan) 0.5 mg Q6H PRN PO ANXIETY; Start 12/28/18 at 13:00 Famotidine (Pepcid) 20 mg Q12 PO Last administered on 12/29/18at 09:19; Admin Dose 20 MG; Start 12/28/18 at 21:00 Allergies: Coded Allergies: No Known Drug Allergy (Unverified Allergy, Unknown, 11/17/18) Past Surgical History Past Surgical Hx: other (H/o Chest tube placemen tfor pneumothorax ) Family History Significant Family History: no pertinent family hx Social History Alcohol Use: none Smoking Status: Former smoker Drug Use: none Exam/Review of Systems Exam Vitals Vital Signs Date Temp Pulse Resp B/P (MAP) Pulse Ox O2 O2 Flow FiO2 Time Delivery Rate 12/29/18 97.8 100 20 145/95 97 Nasal 08:02 (112) Cannula 12/29/18 2.0 28 01:25 Intake and Output 12/28/18 12/28/18 12/29/18 1414:59 22:59 06:59 IntakeIntake Total 1200 ml 480 ml BalanceBalance 1200 ml 480 ml Constitutional: alert Psych: no complaints Head: normocephalic Eyes: nl conjunctiva Neck: supple Respiratory: congested cough, diminished breath sounds, wheezing Cardiovascular: regular rate and rhythm, nl pulses Gastrointestinal: soft, non-tender Musculoskeletal: nl extremities to inspection Extremities: normal pulses Neurological: [employer] II-XII intact, nl mental status, nl speech, nl strength Skin: nl turgor Lymph: nl lymph nodes Results Result Diagram: 12/28/1853912/28/18539 Medications Medication Current Medications IV Flush (NS 3 ml) 3 ml PER PROTOCOL IV ; Start 12/27/18 at 21:30 Ondansetron HCl (Zofran Inj) 4 mg Q6H PRN IV NAUSEA/VOMITING; Start 12/27/18 at 21:30 Acetaminophen (Tylenol Tab) 650 mg Q6H PRN PO .PAIN 1-3 OR TEMP; Start 12/27/18 at 21:30 Morphine Sulfate (morphine) 2 mg Q4H PRN IV .PAIN 7-10 Last administered on 12/29/18at 00:20; Admin Dose 2 MG; Start 12/27/18 at 21:30 Enoxaparin Sodium (Lovenox) 30 mg DAILY SC Last administered on 12/29/18at 09:24; Admin Dose 30 MG; Start 12/28/18 at 09:00 Albuterol (Proventil 0.083% (Neb)) 1.25 mg Q6H RESP THERAPY PRN HHN shortness of breath; Start 12/27/18 at 21:30 Methylprednisolone Sodium Succinate (Solu-Medrol) 60 mg Q12 IV Last admini stered on 12/29/18at 09:18; Admin Dose 60 MG; Start 12/28/18 at 09:00 Lorazepam (Ativan) 0.5 mg Q6H PRN PO ANXIETY; Start 12/28/18 at 13:00 Famotidine (Pepcid) 20 mg Q12 PO Last administered on 12/29/18at 09:19; Admin Dose 20 MG; Start 12/28/18 at 21:00 ELIZABET GRAY MD Dec 29, 2018 11:41
--- NOTE | 2018-12-29 13:20 | PN ---
Date/Time of Note Date/Time of Note DATE: 12/29/18 TIME: 13:18 Assessment/Plan VTE Prophylaxis Risk score (from Nsg)>0 risk: 4 SCD applied (from Nsg): Yes Lines/Catheters IV Catheter Type (from Nrsg): Saline Lock Assessment/Plan Assessment/Plan - new onset AFIB - New onset A tach - cardiology consut- Dr Montgomery notified - Troponins x 2 - cardiac enzyme - ekg -COPD - continue breathing treatments and IV steroids - monitor clinically Result Diagram: 12/28/18 0540 12/28/18 0540 Results 24hrs Laboratory Tests Test 12/29/18 11:48 Creatine Kinase 74 Creatine Kinase Index 2.6 Creatinine Kinase MB (Mass) 1.91 Troponin I < 0.012 Exam/Review of Systems Exam Vitals Vital Signs Date Temp Pulse Resp B/P (MAP) Pulse Ox O2 O2 Flow FiO2 Time Delivery Rate 12/29/18 97.6 94 20 159/100 96 Nasal 12:14 (119) Cannula 12/29/18 2.0 28 01:25 Intake and Output 12/28/18 12/28/18 12/29/18 1515:00 23:00 07:00 IntakeIntake Total 1200 ml 480 ml BalanceBalance 1200 ml 480 ml Results Results 24hrs Laboratory Tests Test 12/29/18 11:48 Creatine Kinase 74 Creatine Kinase Index 2.6 Creatinine Kinase MB (Mass) 1.91 Troponin I < 0.012 Medications Medication Current Medications IV Flush (NS 3 ml) 3 ml PER PROTOCOL IV ; Start 12/27/18 at 21:30 Ondansetron HCl (Zofran Inj) 4 mg Q6H PRN IV NAUSEA/VOMITING; Start 12/27/18 at 21:30 Acetaminophen (Tylenol Tab) 650 mg Q6H PRN PO .PAIN 1-3 OR TEMP; Start 12/27/18 at 21:30 Morphine Sulfate (morphine) 2 mg Q4H PRN IV .PAIN 7-10 Last administered on 12/29/18at 00:20; Admin Dose 2 MG; Start 12/27/18 at 21:30 Enoxaparin Sodium (Lovenox) 30 mg DAILY SC Last administered on 12/29/18at 09:2 4; Admin Dose 30 MG; Start 12/28/18 at 09:00 Albuterol (Proventil 0.083% (Neb)) 1.25 mg Q6H RESP THERAPY PRN HHN shortness of breath; Start 12/27/18 at 21:30 Methylprednisolone Sodium Succinate (Solu-Medrol) 60 mg Q12 IV Last administered on 12/29/18at 09:18; Admin Dose 60 MG; Start 12/28/18 at 09:00 Lorazepam (Ativan) 0.5 mg Q6H PRN PO ANXIETY; Start 12/28/18 at 13:00 Famotidine (Pepcid) 20 mg Q12 PO Last administered on 12/29/18at 09:19; Admin Dose 20 MG; Start 12/28/18 at 21:00 DERRICK ENCARNACION Dec 29, 2018 13:20
--- NOTE | 2018-12-29 14:27 | CONS ---
Assessment/Plan Assessment/Plan Hospital Course (Demo Recall) Tachyarrhythmia COPD exacerbation Hypertension Pneumothorax status post chest tube August 2018 -Cardiology consultation secondary to tachyarrhythmia. Telemetry reviewed, episodes of supraventricular tachycardia, differential includes multifocal atrial tachycardia versus atrial fibrillation versus frequent PACs. -Echocardiogram currently being performed at bedside with preliminary left ve ntricular ejection fraction 60% -Serial cardiac enzymes are negative, will start patient on calcium channel antoni, we will prophylactically give a dose of IV magnesium today and will check magnesium level in the a.m. -BNP was unremarkable in the 40s -Continue treatment of COPD -Continue telemetry monitoring Consultation Date/Type/Reason Admit Date/Time Dec 27, 2018 at 21:18 Type of Consult Cardiology Reason for Consultation Tachycardia Date/Time of Note DATE: 12/29/18 TIME: 14:17 Hx of Present Illness This is a 68-year-old male with past medical history of COPD, hypertension who presents with progressive worsening shortness of breath of the past 10 days. Patient with cough, wheezing and shortness of breath. Complains of chest discomfort with coughing. Also complains of intermittent palpitations. Symptoms have improved slightly over the past day. Patient tells me he had a chest tube least a few months ago that was later removed. He otherwise denies any cardiac history including any myocardial infarction or cardiac procedures. He tells me he quit smoking approximately 6 months ago. Denies any current fevers or chills, dizziness. 12 point review of systems was performed with all pertinent positives and negatives mentioned above and all else is negative Past Medical History COPD Hypertension Home Meds Active Scripts Sulfamethoxazole/Trimethoprim* (Bactrim Ds* Tablet) 1 Each Tablet, 1 TAB PO BID, #14 TAB Prov:NICOLE CALLAWAY 11/17/18 Amoxicillin/Potassium Clav (Amox-Clav 875-125 mg Tablet) 875-125 mg Tab, 1 TAB PO BID for 7 Days, #14 TAB Prov:NICOLE CALLAWAY 11/17/18 Hydrocodone Bit-Acetaminophen (Hydrocodone Bit-APAP) 5-325MG Tablet, 1 TAB PO Q6H PRN for PAIN LEVEL 4-6, #20 TAB Prov:SCARLET DORANTES 08/12/18 Hydralazine Hcl* (Hydralazine Hcl*) 25 Mg Tab, 25 MG PO Q8, #90 TAB Prov:SCARLET DORANTES 12/09/17 Reported Medications Ibuprofen* (Ibuprofen*) 600 Mg Tablet, 600 MG PO DAILY PRN for PAIN 11/17/18 Albuterol Sulfate* (Ventolin HFA*) 18 Gm Hfa.aer.ad, 2 PUFF INHALATION Q4H, #1 INHALER 08/07/18 Amlodipine Besylate* (Amlodipine Besylate*) 10 Mg Tablet, 10 MG PO DAILY, #30 TAB 08/07/18 Medications Current Medications IV Flush (NS 3 ml) 3 ml PER PROTOCOL IV ; Start 12/27/18 at 21:30 Ondansetron HCl (Zofran Inj) 4 mg Q6H PRN IV NAUSEA/VOMITING; Start 12/27/18 at 21:30 Acetaminophen (Tylenol Tab) 650 mg Q6H PRN PO .PAIN 1-3 OR TEMP; Start 12/27/18 at 21:30 Morphine Sulfate (morphine) 2 mg Q4H PRN IV .PAIN 7-10 Last administered on 12/29/18at 00:20; Admin Dose 2 MG; Start 12/27/18 at 21:30 Enoxaparin Sodium (Lovenox) 30 mg DAILY SC Last administered on 12/29/18at 09:24; Admin Dose 30 MG; Start 12/28/18 at 09:00 Albuterol (Proventil 0.083% (Neb)) 1.25 mg Q6H RESP THERAPY PRN HHN shortness of breath; Start 12/27/18 at 21:30 Methylprednisolone Sodium Succinate (Solu-Medrol) 60 mg Q12 IV Last ad ministered on 12/29/18at 09:18; Admin Dose 60 MG; Start 12/28/18 at 09:00 Lorazepam (Ativan) 0.5 mg Q6H PRN PO ANXIETY; Start 12/28/18 at 13:00 Famotidine (Pepcid) 20 mg Q12 PO Last administered on 12/29/18at 09:19; Admin Dose 20 MG; Start 12/28/18 at 21:00 Allergies: Coded Allergies: No Known Drug Allergy (Unverified Allergy, Unknown, 11/17/18) Past Surgical History Chest tube placement August 2018 Past Surgical Hx: other Family History Significant Family History: no pertinent family hx Social History Alcohol Use: other (History of) Smoking Status: Former smoker Exam/Review of Systems Vital Signs Vitals Vital Signs Date Temp Pulse Resp B/P (MAP) Pulse Ox O2 O2 Flow FiO2 Time Delivery Rate 12/29/18 97.6 94 20 159/100 96 Nasal 12:14 (119) Cannula 12/29/18 2.0 28 01:25 Intake and Output 12/28/18 12/28/18 12/29/18 1515:00 23:00 07:00 IntakeIntake Total 1200 ml 480 ml BalanceBalance 1200 ml 480 ml Exam Exam No dyspnea with speaking Constitutional: alert, oriented Head: normocephalic Respiratory: other (Coarse breath sounds bilaterally, scattered crackles, mild end expiratory wheeze) Cardiovascular: regular rate and rhythm (S1-S2 heard) Gastrointestinal: soft, non-tender, bowel sounds Extremities: other (No significant edema) Labs Result Diagram: 12/28/18 0540 12/28/18 0540 Results 24hrs Laboratory Tests Test 12/29/18 11:48 Creatine Kinase 74 Creatine Kinase Index 2.6 Creatinine Kinase MB (Mass) 1.91 Troponin I < 0.012 Imaging Imaging ECG demonstrates sinus rhythm at 86 bpm, QRS 72 ms, no significant ischemic ST abnormalities Medications Medications Current Medications IV Flush (NS 3 ml) 3 ml PER PROTOCOL IV ; Start 12/27/18 at 21:30 Ondansetron HCl (Zofran Inj) 4 mg Q6H PRN IV NAUSEA/VOMITING; Start 12/27/18 at 21:30 Acetaminophen (Tylenol Tab) 650 mg Q6H PRN PO .PAIN 1-3 OR TEMP; Start 12/27/18 at 21:30 Morphine Sulfate (morphine) 2 mg Q4H PRN IV .PAIN 7-10 Last administered on 12/29/18at 00:20; Admin Dose 2 MG; Start 12/27/18 at 21:30 Enoxaparin Sodium (Lovenox) 30 mg DAILY SC Last administered on 12/29/18at 09:24; Admin Dose 30 MG; Start 12/28/18 at 09:00 Albuterol (Proventil 0.083% (Neb)) 1.25 mg Q6H RESP THERAPY PRN HHN shortness of breath; Start 12/27/18 at 21:30 Methylprednisolone Sodium Succinate (Solu-Medrol) 60 mg Q12 IV Last administered on 12/29/18at 09:18; Admin Dose 60 MG; Start 12/28/18 at 09:00 Lorazepam (Ativan) 0.5 mg Q6H PRN PO ANXIETY; Start 12/28/18 at 13:00 Famotidine (Pepcid) 20 mg Q12 PO Last administered on 12/29/18at 09:19; Admin Dose 20 MG; Start 12/28/18 at 21:00 Salo Franco DO Dec 29, 2018 14:27
[2018-12-29] MEDS ORDERED: MAGNESIUM SULFATE 2 GM/50 ML 50 ML IVPB ONE (14:30)
[2018-12-29] MEDS: DILTIAZEM (CD) 120 MG CAP PO SCH ×2 (15:59→22:46)
[2018-12-29] MEDS ORDERED: LOPERAMIDE 2 MG CAP PO PRN (17:30)
[2018-12-29] MEDS: CEFTRIAXONE 1 GM/50 ML (PMX) 50 ML IVPB SCH (22:44)
[2018-12-30] VITALS (12 sets, daily range): BP systolic 127–140; BP diastolic 77–87; PULSE 61–90; RESP 18–19
[2018-12-30] MEDS: METHYLPREDNISOLONE 125 MG INJ IV SCH ×2 (08:59→21:13)
[2018-12-30] MEDS: FAMOTIDINE 20 MG TAB PO SCH ×2 (09:04→21:13)
[2018-12-30] MEDS: DILTIAZEM (CD) 120 MG CAP PO SCH ×2 (09:04→21:13)
[2018-12-30] MEDS: ENOXAPARIN 40 MG/0.4 ML SYG SC SCH (09:07)
--- NOTE | 2018-12-30 11:59 | CONS ---
Assessment/Plan Assessment/Plan Assessment/Plan (Daily) 1. Prerenal azotemia 2. acute COPD exacerbation 3. H/O COPD 4. H/o Pneumothorax s/p previous Chest tube placement 4. H/O HTN 5. H/o HL 6. H/o Smoking Plan: IV solumedrol, , no arrhmia on Tele so far overnight, BP stable, Cr normal will follow up Consultation Date/Type/Reason Admit Date/Time Dec 27, 2018 at 21:18 Initial Consult Date 12/29/18 Type of Consult NEPHROLOGY Requesting Provider: JORGE HANNA MD Date/Time of Note DATE: 12/30/18 TIME: 11:59 Exam/Review of Systems Exam Vitals Vital Signs Date Temp Pulse Resp B/P (MAP) Pulse Ox O2 O2 Flow FiO2 Time Delivery Rate 12/30/18 97.4 72 18 135/80 98 Room Air 11:55 (98) 12/30/18 2.0 11:37 12/29/18 28 01:25 Intake and Output 12/29/18 12/29/18 12/30/18 1515:00 23:00 07:00 IntakeIntake Total 1000 ml 1050 ml BalanceBalance 1000 ml 1050 ml Results Result Diagram: 12/30/18 0536 12/30/18 0536 Results 24hrs Laboratory Tests Test 12/30/18 05:35 12/30/18 05:36 Magnesium Level 2.0 White Blood Count 11.7 #H Red Blood Count 4.27 L Hemoglobin 13.7 L Hematocrit 40.9 L Mean Corpuscular Volume 95.8 Mean Corpuscular Hemoglobin 32.1 Mean Corpuscular Hemoglobin Concent 33.5 Red Cell Distribution Width 14.0 Platelet Count 201 # Mean Platelet Volume 10.0 Immature Granulocytes % 0.800 H Neutrophils % 91.3 H Lymphocytes % 5.9 L Monocytes % 1.9 Eosinophils % 0.0 Basophils % 0.1 Nucleated Red Blood Cells % 0.0 Immature Granulocytes # 0.090 H Neutrophils # 10.7 H Lymphocytes # 0.7 L Monocytes # 0.2 L Eosinophils # 0.0 Basophils # 0.0 Nucleated Red Blood Cells # 0.0 Sodium Level 138 Potassium Level 4.6 Chloride Level 100 Carbon Dioxide Level 27 Anion Gap 11 Blood Urea Nitrogen 24 H Creatinine 0.81 Est Glomerular Filtrat Rate mL/min > 60 Glucose Level 154 Calcium Level 9.3 Medications Medication Current Medications IV Flush (NS 3 ml) 3 ml PER PROTOCOL IV ; Start 12/27/18 at 21:30 Ondansetron HCl (Zofran Inj) 4 mg Q6H PRN IV NAUSEA/VOMITING; Start 12/27/18 at 21:30 Acetaminophen (Tylenol Tab) 650 mg Q6H PRN PO .PAIN 1-3 OR TEMP; Start 12/27/18 at 21:30 Morphine Sulfate (morphine) 2 mg Q4H PRN IV .PAIN 7-10 Last administered on 12/29/18 00:20; Admin Dose 2 MG; Start 12/27/18 at 21:30 Albuterol (Proventil 0.083% (Neb)) 1.25 mg Q6H RESP THERAPY PRN HHN shortness of breath; Start 12/27/18 at 21:30 Methylprednisolone Sodium Succinate (Solu-Medrol) 60 mg Q12 IV Last administered on 12/30/18 08:59; Admin Dose 60 MG; Start 12/28/18 at 09:00 Lorazepam (Ativan) 0.5 mg Q6H PRN PO ANXIETY; Start 12/28/18 at 13:00 Famotidine (Pepcid) 20 mg Q12 PO Last administered on 12/30/18 09:04; Admin Dose 20 MG; Start 12/28/18 at 21:00 Diltiazem HCl (Cardizem Cd) 120 mg BID PO Last administered on 12/30/18 09:04; Admin Dose 120 MG; Start 12/29/18 at 14:30 Loperamide HCl (Imodium Cap) 2 mg Q6 PRN PO DIARRHEA Last administered on 12/29/18 23:14; Admin Dose 2 MG; Start 12/29/18 at 17:30 Ceftriaxone Sodium 50 ml @ 100 mls/hr Q24H IVPB Last administered on 12/29/18 22:44; Admin Dose 100 MLS/HR; Start 12/29/18 at 18:00 Enoxaparin Sodium (Lovenox) 40 mg DAILY SC Last administered on 12/30/18 09:07; Admin Dose 40 MG; Start 12/30/18 at 09:00 ELIZABET GRAY MD Dec 30, 2018 11:59
--- NOTE | 2018-12-30 16:29 | CONS ---
Assessment/Plan Assessment/Plan Assessment/Plan (Daily) Tachyarrhythmia COPD exacerbation Hypertension Pneumothorax status post chest tube August 2018 -Cardiology consultation secondary to tachyarrhythmia. Telemetry reviewed, episodes of supraventricular tachycardia, differential includes multifocal atrial tachycardia versus atrial fibrillation versus frequent PACs. -left ventricular ejection fraction 60% -BNP was unremarkable in the 40s -Continue treatment of COPD -Continue telemetry monitoring Consultation Date/Type/Reason Admit Date/Time Dec 27, 2018 at 21:18 Initial Consult Date 12/29/18 Type of Consult Cardiology Requesting Provider: JORGE HANNA MD Date/Time of Note DATE: 12/30/18 TIME: 16:28 24 HR Interval Summary Free Text/Dictation The patient with no cahnge Exam/Review of Systems Vital Signs Vitals Vital Signs Date Temp Pulse Resp B/P (MAP) Pulse Ox O2 O2 Flow FiO2 Time Delivery Rate 12/30/18 97.4 66 18 134/77 94 Nasal 3.0 15:54 (96) Cannula 12/29/18 28 01:25 Intake and Output 12/29/18 12/29/18 12/30/18 1515:00 23:00 07:00 IntakeIntake Total 1000 ml 1050 ml BalanceBalance 1000 ml 1050 ml Labs Result Diagram: 12/30/18 0536 12/30/18 0536 Results 24hrs Laboratory Tests Test 12/30/18 05:35 12/30/18 05:36 Magnesium Level 2.0 White Blood Count 11.7 #H Red Blood Count 4.27 L Hemoglobin 13.7 L Hematocrit 40.9 L Mean Corpuscular Volume 95.8 Mean Corpuscular Hemoglobin 32.1 Mean Corpuscular Hemoglobin Concent 33.5 Red Cell Distribution Width 14.0 Platelet Count 201 # Mean Platelet Volume 10.0 Immature Granulocytes % 0.800 H Neutrophils % 91.3 H Lymphocytes % 5.9 L Monocytes % 1.9 Eosinophils % 0.0 Basophils % 0.1 Nucleated Red Blood Cells % 0.0 Immature Granulocytes # 0.090 H Neutrophils # 10.7 H Lymphocytes # 0.7 L Monocytes # 0.2 L Eosinophils # 0.0 Basophils # 0.0 Nucleated Red Blood Cells # 0.0 Sodium Level 138 Potassium Level 4.6 Chloride Level 100 Carbon Dioxide Level 27 Anion Gap 11 Blood Urea Nitrogen 24 H Creatinine 0.81 Est Glomerular Filtrat Rate mL/min > 60 Glucose Level 154 Calcium Level 9.3 Medications Medications Current Medications IV Flush (NS 3 ml) 3 ml PER PROTOCOL IV ; Start 12/27/18 at 21:30 Ondansetron HCl (Zofran Inj) 4 mg Q6H PRN IV NAUSEA/VOMITING; Start 12/27/18 at 21:30 Acetaminophen (Tylenol Tab) 650 mg Q6H PRN PO .PAIN 1-3 OR TEMP; Start 12/27/18 at 21:30 Morphine Sulfate (morphine) 2 mg Q4H PRN IV .PAIN 7-10 Last administered on 12/29/18 00:20; Admin Dose 2 MG; Start 12/27/18 at 21:30 Albuterol (Proventil 0.083% (Neb)) 1.25 mg Q6H RESP THERAPY PRN HHN shortness of breath; Start 12/27/18 at 21:30 Methylprednisolone Sodium Succinate (Solu-Medrol) 60 mg Q12 IV Last administered on 12/30/18 08:59; Admin Dose 60 MG; Start 12/28/18 at 09:00 Lorazepam (Ativan) 0.5 mg Q6H PRN PO ANXIETY; Start 12/28/18 at 13:00 Famotidine (Pepcid) 20 mg Q12 PO Last administered on 12/30/18 09:04; Admin Dose 20 MG; Start 12/28/18 at 21:00 Diltiazem HCl (Cardizem Cd) 120 mg BID PO Last administered on 12/30/18 09:04; Admin Dose 120 MG; Start 12/29/18 at 14:30 Loperamide HCl (Imodium Cap) 2 mg Q6 PRN PO DIARRHEA Last administered on 12/29/18 23:14; Admin Dose 2 MG; Start 12/29/18 at 17:30 Ceftriaxone Sodium 50 ml @ 100 mls/hr Q24H IVPB Last administered on 12/29/18 22:44; Admin Dose 100 MLS/HR; Start 12/29/18 at 18:00 Enoxaparin Sodium (Lovenox) 40 mg DAILY SC Last administered on 12/30/18 09:07; Admin Dose 40 MG; Start 12/30/18 at 09:00 MIKE SILVA MD Dec 30, 2018 16:29
--- NOTE | 2018-12-30 16:51 | RADRPT ---
Echocardiogram Report Patient Name: Jonathan ANDUJAR ID: [id number] : 1950 (68y 2m)Study Date: 12/29/2018 2:11:57 PM Gender: MAccession #: [id number] Tech: Abundio [facility] Location: 9- Ref.Physician: DEREK ARNOLD Height(Cm): BSA: Weight(Kg): Quality: Technically Difficult StudyAccount #: Procedures: Echocardiographic Report: Transthoracic echocardiogram with complete 2D, M-Mode, and doppler examination. Indications: Atrial Fibrillation, and Shortness of breath. Measurements: 2D/M Mode Doppler Measurement Value Normal Range Measurement Value Normal Range LVIDd 2D 3.6 [ 4.2 - 5.8 ] cm AV Peak Sinan 0.9 [ 100.0 - 170.0 ] cm/sec LVIDs 2D 2.4 [ 2.5 - 4.0 ] cm AV Peak PG 4.0 [ 2.0 - 9.0 ] mmHg LVPWd 2D 1.0 [ 0.6 - 1.0 ] cm LVOT Peak Sinan 0.7 [ 70.0 - 110.0 ] cm/sec IVSd 2D 1.4 [ 0.6 - 1.0 ] cm LVOT Peak PG 2.0 [ 2.0 - 6.0 ] mmHg IVS/LVPW 2D 1.4 ratio MV E Peak Sinan 0.5 [ 60.0 - 130.0 ] cm/sec AoR Diam 2D 3.6 [ 2.6 - 3.4 ] cm MV A Peak Sinan 0.8 [ 100.0 - 120.0 ] cm/sec LA/Ao 2D 1 ratio MV E/A 0.6 [ 0.8 - 1.5 ] ratio LA Dimen 2D 2.9 [ 3.0 - 4.0 ] cm MV Decel Time 201 [ 104 - 258 ] msec Lat E` Sinan 0.1 [ 10.0 - 15.0 ] cm/sec MV E/A 0.6 [ 0.8 - 1.5 ] ratio TR Peak Sinan 1.5 [ 100.0 - 280.0 ] cm/sec TR Peak PG 9.0 mmHg RVSP 12.0 [ 10.0 - 36.0 ] mmHg Findings: Left Ventricle: Normal left ventricular systolic function. Normal left ventricular cavity size. Mild asymmetric septal hypertrophy. Ejection fraction is visually estimated at 60 %. Tissue Doppler/Mitral Doppler indices are consistent with impaired relaxation (Stage I diastolic dysfunction). Right Ventricle: Normal right ventricular size. Normal right ventricular systolic function. Left Atrium: The left atrium is normal in size. Right Atrium: The right atrium is normal in size. Mitral Valve: Mild mitral leaflet calcification. Mild mitral annular calcification. Trace mitral regurgitation. Aortic Valve: No hemodynamically significant aortic stenosis by doppler. Aortic cusps appear mildly calcified. Tricuspid Valve: Normal appearance of the tricuspid valve. Estimated peak PA systolic pressure 12 mmHg. There is trace tricuspid regurgitation. Pericardium: Normal pericardium with no significant pericardial effusion. Aorta: Normal aortic root. IVC: Normal size and normal respiratory collapse consistent with normal right atrial pressure. Conclusions: Normal left ventricular systolic function. Normal left ventricular cavity size. Mild asymmetric septal hypertrophy. Ejection fraction is visually estimated at 60 %. Tissue Doppler/Mitral Doppler indices are consistent with impaired relaxation (Stage I diastolic dysfunction). Mild mitral leaflet calcification. Mild mitral annular calcification. Trace mitral regurgitation. No hemodynamically significant aortic stenosis by doppler. Aortic cusps appear mildly calcified. Normal appearance of the tricuspid valve. Estimated peak PA systolic pressure 12 mmHg. There is trace tricuspid regurgitation. Normal pericardium with no significant pericardial effusion. Normal right ventricular size. Normal right ventricular systolic function. The left atrium is normal in size. The right atrium is normal in size. Normal aortic root. Normal size and normal respiratory collapse consistent with normal right atrial pressure. Electronically Signed By: Dakotah Almeida 2018-12-30 16:51:20 PDT
[2018-12-30] MEDS: CEFTRIAXONE 1 GM/50 ML (PMX) 50 ML IVPB SCH (17:53)
--- NOTE | 2018-12-30 18:45 | PN ---
Date/Time of Note Date/Time of Note DATE: 12/30/18 TIME: 18:43 Assessment/Plan VTE Prophylaxis Risk score (from Nsg)>0 risk: 2 SCD applied (from Nsg): Yes Lines/Catheters IV Catheter Type (from Nrsg): Saline Lock Assessment/Plan Assessment/Plan - new onset AFIB - New onset A tach - per cardio -COPD - continue breathing treatments and IV steroids - monitor clinically Dw Dr moyer Result Diagram: 12/30/1853512/30/18 0536 Results 24hrs Laboratory Tests Test 12/30/18 05:35 12/30/18 05:36 Magnesium Level 2.0 White Blood Count 11.7 #H Red Blood Count 4.27 L Hemoglobin 13.7 L Hematocrit 40.9 L Mean Corpuscular Volume 95.8 Mean Corpuscular Hemoglobin 32.1 Mean Corpuscular Hemoglobin Concent 33.5 Red Cell Distribution Width 14.0 Platelet Count 201 # Mean Platelet Volume 10.0 Immature Granulocytes % 0.800 H Neutrophils % 91.3 H Lymphocytes % 5.9 L Monocytes % 1.9 Eosinophils % 0.0 Basophils % 0.1 Nucleated Red Blood Cells % 0.0 Immature Granulocytes # 0.090 H Neutrophils # 10.7 H Lymphocytes # 0.7 L Monocytes # 0.2 L Eosinophils # 0.0 Basophils # 0.0 Nucleated Red Blood Cells # 0.0 Sodium Level 138 Potassium Level 4.6 Chloride Level 100 Carbon Dioxide Level 27 Anion Gap 11 Blood Urea Nitrogen 24 H Creatinine 0.81 Est Glomerular Filtrat Rate mL/min > 60 Glucose Level 154 Calcium Level 9.3 Subjective 24 Hr Interval Summary Eyes: no complaints ENT: no complaints Respiratory: no complaints Cardiovascular: no complaints Gastrointestinal: no complaints Genitourinary: no complaints Musculoskeletal: no complaints Skin: no complaints Endocrine: no complaints Psychological: nl mood/affect Exam/Review of Systems Exam Vitals Vital Signs Date Temp Pulse Resp B/P (MAP) Pulse Ox O2 O2 Flow FiO2 Time Delivery Rate 12/30/18 61 16:52 12/30/18 97.4 18 134/77 94 Nasal 3.0 15:54 (96) Cannula 12/29/18 28 01:25 Intake and Output 12/29/18 12/29/18 12/30/18 1515:00 23:00 07:00 IntakeIntake Total 1000 ml 1050 ml BalanceBalance 1000 ml 1050 ml Exam patient has arrhythmias but no chest pain , Constitutional: alert, oriented, well developed Psych: nl mood/affect Head: atraumatic Eyes: nl lids, nl sclera ENMT: nl external ears & nose Neck: non-tender Respiratory: clear to auscultation Cardiovascular: nl pulses, irregular rhythm, other (s1s2) Gastrointestinal: soft, non-tender Musculoskeletal: nl extremities to inspection Extremities: normal pulses Neurological: nl mental status, nl speech Skin: nl turgor Lymph: nontender Results Results 24hrs Laboratory Tests Test 12/30/18 05:35 12/30/18 05:36 Magnesium Level 2.0 White Blood Count 11.7 #H Red Blood Count 4.27 L Hemoglobin 13.7 L Hematocrit 40.9 L Mean Corpuscular Volume 95.8 Mean Corpuscular Hemoglobin 32.1 Mean Corpuscular Hemoglobin Concent 33.5 Red Cell Distribution Width 14.0 Platelet Count 201 # Mean Platelet Volume 10.0 Immature Granulocytes % 0.800 H Neutrophils % 91.3 H Lymphocytes % 5.9 L Monocytes % 1.9 Eosinophils % 0.0 Basophils % 0.1 Nucleated Red Blood Cells % 0.0 Immature Granulocytes # 0.090 H Neutrophils # 10.7 H Lymphocytes # 0.7 L Monocytes # 0.2 L Eosinophils # 0.0 Basophils # 0.0 Nucleated Red Blood Cells # 0.0 Sodium Level 138 Potassium Level 4.6 Chloride Level 100 Carbon Dioxide Level 27 Anion Gap 11 Blood Urea Nitrogen 24 H Creatinine 0.81 Est Glomerular Filtrat Rate mL/min > 60 Glucose Level 154 Calcium Level 9.3 Medications Medication Current Medications IV Flush (NS 3 ml) 3 ml PER PROTOCOL IV ; Start 12/27/18 at 21:30 Ondansetron HCl (Zofran Inj) 4 mg Q6H PRN IV NAUSEA/VOMITING; Start 12/27/18 at 21:30 Acetaminophen (Tylenol Tab) 650 mg Q6H PRN PO .PAIN 1-3 OR TEMP; Start 12/27/18 at 21:30 Morphine Sulfate (morphine) 2 mg Q4H PRN IV .PAIN 7-10 Last administered on 12/29/18at 00:20; Admin Dose 2 MG; Start 12/27/18 at 21:30 Albuterol (Proventil 0.083% (Neb)) 1.25 mg Q6H RESP THERAPY PRN HHN shortness of breath; Start 12/27/18 at 21:30 Methylprednisolone Sodium Succinate (Solu-Medrol) 60 mg Q12 IV Last administered on 12/30/18 08:59; Admin Dose 60 MG; Start 12/28/18 at 09:00 Lorazepam (Ativan) 0.5 mg Q6H PRN PO ANXIETY; Start 12/28/18 at 13:00 Famotidine (Pepcid) 20 mg Q12 PO Last administered on 12/30/18 09:04; Admin Dose 20 MG; Start 12/28/18 at 21:00 Diltiazem HCl (Cardizem Cd) 120 mg BID PO Last administered on 12/30/18 09:04; Admin Dose 120 MG; Start 12/29/18 at 14:30 Loperamide HCl (Imodium Cap) 2 mg Q6 PRN PO DIARRHEA Last administered on 12/29/18 23:14; Admin Dose 2 MG; Start 12/29/18 at 17:30 Ceftriaxone Sodium 50 ml @ 100 mls/hr Q24H IVPB Last administered on 12/30/18 17:53; Admin Dose 100 MLS/HR; Start 12/29/18 at 18:00 Enoxaparin Sodium (Lovenox) 40 mg DAILY SC Last administered on 12/30/18 09:07; Admin Dose 40 MG; Start 12/30/18 at 09:00 DERRICK ENCARNACION Dec 30, 2018 18:45
[2018-12-31] VITALS (12 sets, daily range): BP systolic 128–158; BP diastolic 65–94; PULSE 59–83; RESP 18
[2018-12-31] MEDS: FAMOTIDINE 20 MG TAB PO SCH ×2 (08:49→21:43)
[2018-12-31] MEDS: METHYLPREDNISOLONE 125 MG INJ IV SCH ×2 (08:49→21:43)
[2018-12-31] MEDS: DILTIAZEM (CD) 120 MG CAP PO SCH ×2 (08:50→21:44)
[2018-12-31] MEDS: ENOXAPARIN 40 MG/0.4 ML SYG SC SCH (08:58)
--- NOTE | 2018-12-31 10:56 | CONS ---
Assessment/Plan Assessment/Plan Assessment/Plan (Daily) 1. Prerenal azotemia 2. acute COPD exacerbation 3. H/O COPD 4. H/o Pneumothorax s/p previous Chest tube placement 4. H/O HTN 5. H/o HL 6. H/o Smoking Plan: IV solumedrol, watch for BUN BP stable, Cardizem for rate control Cardiology has been following Will follow up Consultation Date/Type/Reason Admit Date/Time Dec 27, 2018 at 21:18 Initial Consult Date 12/29/18 Type of Consult NEPHROLOGY Requesting Provider: JORGE HANNA MD Date/Time of Note DATE: 12/31/18 TIME: 10:56 Exam/Review of Systems Exam Vitals Vital Signs Date Temp Pulse Resp B/P (MAP) Pulse Ox O2 O2 Flow FiO2 Time Delivery Rate 12/31/18 69 08:41 12/31/18 Nasal 2.0 08:00 Cannula 12/31/18 98.1 18 143/84 98 07:39 (103) 12/29/18 28 01:25 Intake and Output 12/30/18 12/30/18 12/31/18 1515:00 23:00 07:00 IntakeIntake Total 1250 ml BalanceBalance 1250 ml Results Result Diagram: 12/30/1836 12/30/1836 Medications Medication Current Medications IV Flush (NS 3 ml) 3 ml PER PROTOCOL IV ; Start 12/27/18 at 21:30 Ondansetron HCl (Zofran Inj) 4 mg Q6H PRN IV NAUSEA/VOMITING; Start 12/27/18 at 21:30 Acetaminophen (Tylenol Tab) 650 mg Q6H PRN PO .PAIN 1-3 OR TEMP; Start 12/27/18 at 21:30 Morphine Sulfate (morphine) 2 mg Q4H PRN IV .PAIN 7-10 Last administered on 12/29/18at 00:20; Admin Dose 2 MG; Start 12/27/18 at 21:30 Albuterol (Proventil 0.083% (Neb)) 1.25 mg Q6H RESP THERAPY PRN HHN shortness of breath; Start 12/27/18 at 21:30 Methylprednisolone Sodium Succinate (Solu-Medrol) 60 mg Q12 IV Last administered on 12/31/18at 08:49; Admin Dose 60 MG; Start 12/28/18 at 09:00 Lorazepam (Ativan) 0.5 mg Q6H PRN PO ANXIETY; Start 12/28/18 at 13:00 Famotidine (Pepcid) 20 mg Q12 PO Last administered on 12/31/18 08:49; Admin Dose 20 MG; Start 12/28/18 at 21:00 Diltiazem HCl (Cardizem Cd) 120 mg BID PO Last administered on 12/31/18 08:50; Admin Dose 120 MG; Start 12/29/18 at 14:30 Loperamide HCl (Imodium Cap) 2 mg Q6 PRN PO DIARRHEA Last administered on 12/29/18at 23:14; Admin Dose 2 MG; Start 12/29/18 at 17:30 Ceftriaxone Sodium 50 ml @ 100 mls/hr Q24H IVPB Last administered on 12/30/18at 17:53; Admin Dose 100 MLS/HR; Start 12/29/18 at 18:00 Enoxaparin Sodium (Lovenox) 40 mg DAILY SC Last administered on 12/31/18 08:58; Admin Dose 40 MG; Start 12/30/18 at 09:00 ELIZABET GRAY MD Dec 31, 2018 10:56
--- NOTE | 2018-12-31 17:50 | CONS ---
Assessment/Plan Assessment/Plan Assessment/Plan (Daily) Tachyarrhythmia COPD exacerbation Hypertension Pneumothorax status post chest tube August 2018 -Cardiology consultation secondary to tachyarrhythmia. Telemetry reviewed, episodes of supraventricular tachycardia, differential includes multifocal atrial tachycardia versus atrial fibrillation versus frequent PACs. -left ventricular ejection fraction 60% -BNP was unremarkable in the 40s -Continue treatment of COPD -Continue telemetry monitoring Consultation Date/Type/Reason Admit Date/Time Dec 27, 2018 at 21:18 Initial Consult Date 12/29/18 Type of Consult Cardiology Requesting Provider: JORGE HANNA MD Date/Time of Note DATE: 12/31/18 TIME: 17:50 24 HR Interval Summary Free Text/Dictation the aptient stable Exam/Review of Systems Vital Signs Vitals Vital Signs Date Temp Pulse Resp B/P (MAP) Pulse Ox O2 O2 Flow FiO2 Time Delivery Rate 12/31/18 61 16:28 12/31/18 98.0 18 131/83 99 Room Air 15:40 (99) 12/31/18 3.0 13:55 12/29/18 28 01:25 Intake and Output 12/30/18 12/30/18 12/31/18 1414:59 22:59 06:59 IntakeIntake Total 1250 ml BalanceBalance 1250 ml Labs Result Diagram: 12/30/1836 12/30/1836 Medications Medications Current Medications IV Flush (NS 3 ml) 3 ml PER PROTOCOL IV ; Start 12/27/18 at 21:30 Ondansetron HCl (Zofran Inj) 4 mg Q6H PRN IV NAUSEA/VOMITING; Start 12/27/18 at 21:30 Acetaminophen (Tylenol Tab) 650 mg Q6H PRN PO .PAIN 1-3 OR TEMP; Start 12/27/18 at 21:30 Morphine Sulfate (morphine) 2 mg Q4H PRN IV .PAIN 7-10 Last administered on 12/29/18at 00:20; Admin Dose 2 MG; Start 12/27/18 at 21:30 Albuterol (Proventil 0.083% (Neb)) 1.25 mg Q6H RESP THERAPY PRN HHN shortness of breath; Start 12/27/18 at 21:30 Methylprednisolone Sodium Succinate (Solu-Medrol) 60 mg Q12 IV Last administered on 4/25/19at 08:49; Admin Dose 60 MG; Start 12/28/18 at 09:00 Lorazepam (Ativan) 0.5 mg Q6H PRN PO ANXIETY; Start 12/28/18 at 13:00 Famotidine (Pepcid) 20 mg Q12 PO Last administered on 12/31/18 08:49; Admin Dose 20 MG; Start 12/28/18 at 21:00 Diltiazem HCl (Cardizem Cd) 120 mg BID PO Last administered on 12/31/18 08:50; Admin Dose 120 MG; Start 12/29/18 at 14:30 Loperamide HCl (Imodium Cap) 2 mg Q6 PRN PO DIARRHEA Last administered on 12/29/18 23:14; Admin Dose 2 MG; Start 12/29/18 at 17:30 Ceftriaxone Sodium 50 ml @ 100 mls/hr Q24H IVPB Last administered on 12/30/18 17:53; Admin Dose 100 MLS/HR; Start 12/29/18 at 18:00 Enoxaparin Sodium (Lovenox) 40 mg DAILY SC Last administered on 12/31/18 08:58; Admin Dose 40 MG; Start 12/30/18 at 09:00 MIKE SILVA MD Dec 31, 2018 17:50
[2018-12-31] MEDS: CEFTRIAXONE 1 GM/50 ML (PMX) 50 ML IVPB SCH (18:21)
--- NOTE | 2018-12-31 20:51 | PN ---
Date/Time of Note Date/Time of Note DATE: 12/31/18 TIME: 20:46 Assessment/Plan VTE Prophylaxis Risk score (from Nsg)>0 risk: 3 SCD applied (from Nsg): Yes Lines/Catheters IV Catheter Type (from Nrsg): Saline Lock Assessment/Plan Assessment/Plan Tachyarrhythmia - - per cardio COPD exacerbation - continue breathing treatments and IV steroids - monitor clinically Hypertension Pneumothorax status post chest tube August [address] moyer Result Diagram: 12/30/1853512/30/18535 Exam/Review of Systems Exam Vitals Vital Signs Date Temp Pulse Resp B/P (MAP) Pulse Ox O2 O2 Flow FiO2 Time Delivery Rate 12/31/18 71 20:34 12/31/18 97.8 18 145/87 98 19:46 (106) 12/31/18 Room Air 15:40 12/31/18 3.0 13:55 12/29/18 28 01:25 Intake and Output 12/30/18 12/30/18 12/31/18 1515:00 23:00 07:00 IntakeIntake Total 1250 ml BalanceBalance 1250 ml Constitutional: alert, well developed Psych: nl mood/affect Head: atraumatic Eyes: nl lids Cardiovascular: nl pulses, other (s1s2) Gastrointestinal: soft, non-tender Musculoskeletal: nl extremities to inspection Extremities: normal pulses Neurological: nl speech Skin: nl turgor Lymph: nontender Medications Medication Current Medications IV Flush (NS 3 ml) 3 ml PER PROTOCOL IV ; Start 12/27/18 at 21:30 Ondansetron HCl (Zofran Inj) 4 mg Q6H PRN IV NAUSEA/VOMITING; Start 12/27/18 at 21:30 Acetaminophen (Tylenol Tab) 650 mg Q6H PRN PO .PAIN 1-3 OR TEMP; Start 12/27/18 at 21:30 Morphine Sulfate (morphine) 2 mg Q4H PRN IV .PAIN 7-10 Last administered on 12/29/18at 00:20; Admin Dose 2 MG; Start 12/27/18 at 21:30 Albuterol (Proventil 0.083% (Neb)) 1.25 mg Q6H RESP THERAPY PRN HHN shortness of breath; Start 12/27/18 at 21:30 Methylprednisolone Sodium Succinate (Solu-Medrol) 60 mg Q12 IV Last administered on 12/31/18 08:49; Admin Dose 60 MG; Start 12/28/18 at 09:00 Lorazepam (Ativan) 0.5 mg Q6H PRN PO ANXIETY; Start 12/28/18 at 13:00 Famotidine (Pepcid) 20 mg Q12 PO Last administered on 12/31/18 08:49; Admin Dose 20 MG; Start 12/28/18 at 21:00 Diltiazem HCl (Cardizem Cd) 120 mg BID PO Last administered on 12/31/18 08:50; Admin Dose 120 MG; Start 12/29/18 at 14:30 Loperamide HCl (Imodium Cap) 2 mg Q6 PRN PO DIARRHEA Last administered on 12/29/18 23:14; Admin Dose 2 MG; Start 12/29/18 at 17:30 Ceftriaxone Sodium 50 ml @ 100 mls/hr Q24H IVPB Last administered on 12/31/18 18:21; Admin Dose 100 MLS/HR; Start 12/29/18 at 18:00 Enoxaparin Sodium (Lovenox) 40 mg DAILY SC Last administered on 12/31/18 08:58; Admin Dose 40 MG; Start 12/30/18 at 09:00 DERRICK ENCARNACION Dec 31, 2018 20:51
[2019-01-01] VITALS (11 sets, daily range): BP systolic 132–145; BP diastolic 80–93; PULSE 65–95; RESP 18–19
--- NOTE | 2019-01-01 08:04 | CONS ---
Assessment/Plan Assessment/Plan Assessment/Plan (Daily) Assessment Tachyarrhythmia COPD exacerbation Hypertension Pneumothorax status post chest tube August 2018 Plan: No significant abnormalities in echo no recurrent arrhythmias remains stable on diltiazem which should be continued may have flare ups with increased breathing therapy Consultation Date/Type/Reason Admit Date/Time Dec 27, 2018 at 21:18 Initial Consult Date 12/29/18 Type of Consult Cardiology Requesting Provider: JORGE HANNA MD Date/Time of Note DATE: 01/01/19 TIME: 08:02 24 HR Interval Summary Free Text/Dictation patient eager to leave, no chest pain, no palpitations Detailed Summary Respiratory: no complaints Cardiovascular: no complaints Gastrointestinal: no complaints Musculoskeletal: no complaints Skin: no complaints Neurologic: no complaints Exam/Review of Systems Vital Signs Vitals Vital Signs Date Temp Pulse Resp B/P (MAP) Pulse Ox O2 O2 Flow FiO2 Time Delivery Rate 01/01/19 98.3 68 18 136/83 97 08:00 (100) 01/01/19 2.0 05:55 01/01/19 Nasal 03:49 Cannula 12/29/18 28 01:25 Intake and Output 12/31/18 12/31/18 01/01/19 1515:00 23:00 07:00 IntakeIntake Total 360 ml 690 ml BalanceBalance 360 ml 690 ml Exam Constitutional: alert, oriented Head: normocephalic, atraumatic Neck: supple Respiratory: clear to auscultation Cardiovascular: regular rate and rhythm Gastrointestinal: soft Musculoskeletal: nl extremities to inspection Extremities: normal pulses Labs Result Diagram: 12/30/1836 12/30/1836 Medications Medications Current Medications IV Flush (NS 3 ml) 3 ml PER PROTOCOL IV ; Start 12/27/18 at 21:30 Ondansetron HCl (Zofran Inj) 4 mg Q6H PRN IV NAUSEA/VOMITING; Start 12/27/18 at 21:30 Acetaminophen (Tylenol Tab) 650 mg Q6H PRN PO .PAIN 1-3 OR TEMP; Start 12/27/18 at 21:30 Morphine Sulfate (morphine) 2 mg Q4H PRN IV .PAIN 7-10 Last administered on 12/29/18at 00:20; Admin Dose 2 MG; Start 12/27/18 at 21:30 Albuterol (Proventil 0.083% (Neb)) 1.25 mg Q6H RESP THERAPY PRN HHN shortness of breath; Start 12/27/18 at 21:30 Methylprednisolone Sodium Succinate (Solu-Medrol) 60 mg Q12 IV Last administered on 12/31/18 21:43; Admin Dose 60 MG; Start 12/28/18 at 09:00 Lorazepam (Ativan) 0.5 mg Q6H PRN PO ANXIETY; Start 12/28/18 at 13:00 Famotidine (Pepcid) 20 mg Q12 PO Last administered on 12/31/18 21:43; Admin Dose 20 MG; Start 12/28/18 at 21:00 Diltiazem HCl (Cardizem Cd) 120 mg BID PO Last administered on 12/31/18 21:44; Admin Dose 120 MG; Start 12/29/18 at 14:30 Loperamide HCl (Imodium Cap) 2 mg Q6 PRN PO DIARRHEA Last administered on 12/29/18 23:14; Admin Dose 2 MG; Start 12/29/18 at 17:30 Ceftriaxone Sodium 50 ml @ 100 mls/hr Q24H IVPB Last administered on 12/31/18 18:21; Admin Dose 100 MLS/HR; Start 12/29/18 at 18:00 Enoxaparin Sodium (Lovenox) 40 mg DAILY SC Last administered on 12/31/18 08:58; Admin Dose 40 MG; Start 12/30/18 at 09:00 PERRY JOSHUA MD Jan 01, 2019 08:04
[2019-01-01] MEDS: METHYLPREDNISOLONE 125 MG INJ IV SCH ×2 (08:15→20:11)
[2019-01-01] MEDS: DILTIAZEM (CD) 120 MG CAP PO SCH ×2 (08:15→20:12)
[2019-01-01] MEDS: FAMOTIDINE 20 MG TAB PO SCH ×2 (08:15→20:11)
[2019-01-01] MEDS: ENOXAPARIN 40 MG/0.4 ML SYG SC SCH (08:18)
--- NOTE | 2019-01-01 13:28 | CONS ---
Assessment/Plan Assessment/Plan Assessment/Plan (Daily) 1. Prerenal azotemia 2. acute COPD exacerbation 3. H/O COPD 4. H/o Pneumothorax s/p previous Chest tube placement 4. H/O HTN 5. H/o HL 6. H/o Smoking Plan: IV solumedrol, watch for BUN BP stable, Cardizem for rate control BUN/Cr normal, Electrolytes stable Will follow up Consultation Date/Type/Reason Admit Date/Time Dec 27, 2018 at 21:18 Initial Consult Date 12/29/18 Type of Consult NEPHROLOGY Requesting Provider: JORGE HANNA MD Date/Time of Note DATE: 01/01/19 TIME: 13:28 24 HR Interval Summary Free Text/Dictation no acute events, BP stable, afebrile, Exam/Review of Systems Exam Vitals Vital Signs Date Temp Pulse Resp B/P (MAP) Pulse Ox O2 O2 Flow FiO2 Time Delivery Rate 01/01/19 95 12:42 01/01/19 98.2 18 138/83 97 11:55 (101) 01/01/19 Nasal 2.0 09:00 Cannula 12/29/18 28 01:25 Intake and Output 12/31/18 12/31/18 01/01/19 1515:00 23:00 07:00 IntakeIntake Total 360 ml 690 ml BalanceBalance 360 ml 690 ml Exam EXAM: Constitutional: alert, awake, no acute distress Respiratory: congested cough, diminished breath sounds, wheezing Cardiovascular: regular rate and rhythm, nl pulses Gastrointestinal: soft, non-tender Musculoskeletal: nl extremities to inspection Extremities: normal pulses Neurological: FOOD ORDER EXPEDITER II-XII intact, nl mental status, nl speech, nl strength Results Result Diagram: 12/30/1836 12/30/1836 Medications Medication Current Medications IV Flush (NS 3 ml) 3 ml PER PROTOCOL IV ; Start 12/27/18 at 21:30 Ondansetron HCl (Zofran Inj) 4 mg Q6H PRN IV NAUSEA/VOMITING; Start 12/27/18 at 21:30 Acetaminophen (Tylenol Tab) 650 mg Q6H PRN PO .PAIN 1-3 OR TEMP; Start 12/27/18 at 21:30 Morphine Sulfate (morphine) 2 mg Q4H PRN IV .PAIN 7-10 Last administered on 12/29/18at 00:20; Admin Dose 2 MG; Start 12/27/18 at 21:30 Albuterol (Proventil 0.083% (Neb)) 1.25 mg Q6H RESP THERAPY PRN HHN shortness of breath; Start 12/27/18 at 21:30 Methylprednisolone Sodium Succinate (Solu-Medrol) 60 mg Q12 IV Last administered on 01/01/19 08:15; Admin Dose 60 MG; Start 12/28/18 at 09:00 Lorazepam (Ativan) 0.5 mg Q6H PRN PO ANXIETY; Start 12/28/18 at 13:00 Famotidine (Pepcid) 20 mg Q12 PO Last administered on 01/01/19 08:15; Admin Dose 20 MG; Start 12/28/18 at 21:00 Diltiazem HCl (Cardizem Cd) 120 mg BID PO Last administered on 01/01/19 08:15; Admin Dose 120 MG; Start 12/29/18 at 14:30 Loperamide HCl (Imodium Cap) 2 mg Q6 PRN PO DIARRHEA Last administered on 12/29/18 23:14; Admin Dose 2 MG; Start 12/29/18 at 17:30 Ceftriaxone Sodium 50 ml @ 100 mls/hr Q24H IVPB Last administered on 12/31/18 18:21; Admin Dose 100 MLS/HR; Start 12/29/18 at 18:00 Enoxaparin Sodium (Lovenox) 40 mg DAILY SC Last administered on 01/01/19 08:18; Admin Dose 40 MG; Start 12/30/18 at 09:00 EILZABET GRAY MD Jan 01, 2019 13:28
[2019-01-01] MEDS: CEFTRIAXONE 1 GM/50 ML (PMX) 50 ML IVPB SCH (18:15)
[2019-01-02] VITALS (12 sets, daily range): BP systolic 105–156; BP diastolic 65–93; PULSE 61–86; RESP 18–20
[2019-01-02] MEDS: METHYLPREDNISOLONE 125 MG INJ IV SCH ×2 (10:12→20:05)
[2019-01-02] MEDS: DILTIAZEM (CD) 120 MG CAP PO SCH ×2 (10:13→20:05)
[2019-01-02] MEDS: FAMOTIDINE 20 MG TAB PO SCH ×2 (10:13→20:05)
[2019-01-02] MEDS: ENOXAPARIN 40 MG/0.4 ML SYG SC SCH (10:53)
--- NOTE | 2019-01-02 15:52 | PN ---
Date/Time of Note Date/Time of Note DATE: 01/02/19 TIME: 15:52 Assessment/Plan VTE Prophylaxis Risk score (from [facility])>0 risk: 3 SCD applied (from Ns): No Lines/Catheters IV Catheter Type (from [facility]): Saline Lock Assessment/Plan Result Diagram: 01/02/1952001/02/19520 Results 24hrs Laboratory Tests Test 01/02/19 05:21 White Blood Count 12.4 H Red Blood Count 4.22 L Hemoglobin 13.4 L Hematocrit 39.9 L Mean Corpuscular Volume 94.5 Mean Corpuscular Hemoglobin 31.8 Mean Corpuscular Hemoglobin Concent 33.6 Red Cell Distribution Width 13.7 Platelet Count 206 Mean Platelet Volume 10.8 H Immature Granulocytes % 1.700 H Neutrophils % 86.7 H Lymphocytes % 8.3 L Monocytes % 3.1 Eosinophils % 0.0 Basophils % 0.2 Nucleated Red Blood Cells % 0.0 Immature Granulocytes # 0.210 H Neutrophils # 10.7 H Lymphocytes # 1.0 Monocytes # 0.4 Eosinophils # 0.0 Basophils # 0.0 Nucleated Red Blood Cells # 0.0 Sodium Level 139 Potassium Level 4.0 Chloride Level 100 Carbon Dioxide Level 31 Anion Gap 8 Blood Urea Nitrogen 25 H Creatinine 0.78 Est Glomerular Filtrat Rate mL/min > 60 Glucose Level 123 Calcium Level 9.2 Exam/Review of Systems Exam Vitals Vital Signs Date Temp Pulse Resp B/P (MAP) Pulse Ox O2 O2 Flow FiO2 Time Delivery Rate 01/02/19 98.9 82 20 141/93 96 15:20 (109) 01/02/19 2.0 15:13 01/02/19 Nasal 09:45 Cannula Intake and Output 01/01/19 01/01/19 01/02/19 1515:00 23:00 07:00 IntakeIntake Total 2160 ml 740 ml 200 ml BalanceBalance 2160 ml 740 ml 200 ml Results Results 24hrs Laboratory Tests Test 01/02/19 05:21 White Blood Count 12.4 H Red Blood Count 4.22 L Hemoglobin 13.4 L Hematocrit 39.9 L Mean Corpuscular Volume 94.5 Mean Corpuscular Hemoglobin 31.8 Mean Corpuscular Hemoglobin Concent 33.6 Red Cell Distribution Width 13.7 Platelet Count 206 Mean Platelet Volume 10.8 H Immature Granulocytes % 1.700 H Neutrophils % 86.7 H Lymphocytes % 8.3 L Monocytes % 3.1 Eosinophils % 0.0 Basophils % 0.2 Nucleated Red Blood Cells % 0.0 Immature Granulocytes # 0.210 H Neutrophils # 10.7 H Lymphocytes # 1.0 Monocytes # 0.4 Eosinophils # 0.0 Basophils # 0.0 Nucleated Red Blood Cells # 0.0 Sodium Level 139 Potassium Level 4.0 Chloride Level 100 Carbon Dioxide Level 31 Anion Gap 8 Blood Urea Nitrogen 25 H Creatinine 0.78 Est Glomerular Filtrat Rate mL/min > 60 Glucose Level 123 Calcium Level 9.2 Medications Medication Current Medications IV Flush (NS 3 ml) 3 ml PER PROTOCOL IV ; Start 12/27/18 at 21:30 Ondansetron HCl (Zofran Inj) 4 mg Q6H PRN IV NAUSEA/VOMITING; Start 12/27/18 at 21:30 Acetaminophen (Tylenol Tab) 650 mg Q6H PRN PO .PAIN 1-3 OR TEMP; Start 12/27/18 at 21:30 Morphine Sulfate (morphine) 2 mg Q4H PRN IV .PAIN 7-10 Last administered on 12/29/18at 00:20; Admin Dose 2 MG; Start 12/27/18 at 21:30 Albuterol (Proventil 0.083% (Neb)) 1.25 mg Q6H RESP THERAPY PRN HHN shortness of breath; Start 12/27/18 at 21:30 Methylprednisolone Sodium Succinate (Solu-Medrol) 60 mg Q12 IV Last admin istered on 01/02/19at 10:12; Admin Dose 60 MG; Start 12/28/18 at 09:00 Lorazepam (Ativan) 0.5 mg Q6H PRN PO ANXIETY; Start 12/28/18 at 13:00 Famotidine (Pepcid) 20 mg Q12 PO Last administered on 01/02/19 10:13; Admin Dose 20 MG; Start 12/28/18 at 21:00 Diltiazem HCl (Cardizem Cd) 120 mg BID PO Last administered on 01/02/19at 10:13; Admin Dose 120 MG; Start 12/29/18 at 14:30 Loperamide HCl (Imodium Cap) 2 mg Q6 PRN PO DIARRHEA Last administered on 12/29/18at 23:14; Admin Dose 2 MG; Start 12/29/18 at 17:30 Ceftriaxone Sodium 50 ml @ 100 mls/hr Q24H IVPB Last administered on 01/01/19at 18:15; Admin Dose 100 MLS/HR; Start 12/29/18 at 18:00 Enoxaparin Sodium (Lovenox) 40 mg DAILY SC Last administered on 01/02/19at 10:53; Admin Dose 40 MG; Start 12/30/18 at 09:00 DERRICK ENCARNACION Jan 02, 2019 15:52
[2019-01-02] MEDS: CEFTRIAXONE 1 GM/50 ML (PMX) 50 ML IVPB SCH (17:29)
--- NOTE | 2019-01-02 18:54 | CONS ---
Assessment/Plan Assessment/Plan Assessment/Plan (Daily) 1. Prerenal azotemia 2. acute COPD exacerbation 3. H/O COPD 4. H/o Pneumothorax s/p previous Chest tube placement 4. H/O HTN 5. H/o HL 6. H/o Smoking Plan: IV solumedrol 60mg BID , watch for BUN BP stable, Cardizem for rate control BUN/Cr normal, Electrolytes stable Will follow up Consultation Date/Type/Reason Admit Date/Time Dec 27, 2018 at 21:18 Initial Consult Date 12/29/18 Type of Consult NEPHROLOGY Requesting Provider: JORGE HANNA MD Date/Time of Note DATE: 01/02/19 TIME: 18:54 Exam/Review of Systems Exam Vitals Vital Signs Date Temp Pulse Resp B/P (MAP) Pulse Ox O2 O2 Flow FiO2 Time Delivery Rate 01/02/19 79 17:07 01/02/19 98.9 20 141/93 96 15:20 (109) 01/02/19 2.0 15:13 01/02/19 Nasal 09:45 Cannula Intake and Output 01/01/19 01/01/19 01/02/19 1515:00 23:00 07:00 IntakeIntake Total 2160 ml 740 ml 200 ml BalanceBalance 2160 ml 740 ml 200 ml Exam Constitutional: alert, awake, no acute distress Respiratory: congested cough, diminished breath sounds, wheezing Cardiovascular: regular rate and rhythm, nl pulses Gastrointestinal: soft, non-tender Musculoskeletal: nl extremities to inspection Extremities: normal pulses Neurological: MARKETING EXECUTIVE II-XII intact, nl mental status, nl speech, nl strength Results Result Diagram: 01/02/1952001/02/19520 Results 24hrs Laboratory Tests Test 01/02/19 05:21 White Blood Count 12.4 H Red Blood Count 4.22 L Hemoglobin 13.4 L Hematocrit 39.9 L Mean Corpuscular Volume 94.5 Mean Corpuscular Hemoglobin 31.8 Mean Corpuscular Hemoglobin Concent 33.6 Red Cell Distribution Width 13.7 Platelet Count 206 Mean Platelet Volume 10.8 H Immature Granulocytes % 1.700 H Neutrophils % 86.7 H Lymphocytes % 8.3 L Monocytes % 3.1 Eosinophils % 0.0 Basophils % 0.2 Nucleated Red Blood Cells % 0.0 Immature Granulocytes # 0.210 H Neutrophils # 10.7 H Lymphocytes # 1.0 Monocytes # 0.4 Eosinophils # 0.0 Basophils # 0.0 Nucleated Red Blood Cells # 0.0 Sodium Level 139 Potassium Level 4.0 Chloride Level 100 Carbon Dioxide Level 31 Anion Gap 8 Blood Urea Nitrogen 25 H Creatinine 0.78 Est Glomerular Filtrat Rate mL/min > 60 Glucose Level 123 Calcium Level 9.2 Medications Medication Current Medications IV Flush (NS 3 ml) 3 ml PER PROTOCOL IV ; Start 12/27/18 at 21:30 Ondansetron HCl (Zofran Inj) 4 mg Q6H PRN IV NAUSEA/VOMITING; Start 12/27/18 at 21:30 Acetaminophen (Tylenol Tab) 650 mg Q6H PRN PO .PAIN 1-3 OR TEMP; Start 12/27/18 at 21:30 Morphine Sulfate (morphine) 2 mg Q4H PRN IV .PAIN 7-10 Last administered on 12/29/18 00:20; Admin Dose 2 MG; Start 12/27/18 at 21:30 Albuterol (Proventil 0.083% (Neb)) 1.25 mg Q6H RESP THERAPY PRN HHN shortness of breath; Start 12/27/18 at 21:30 Methylprednisolone Sodium Succinate (Solu-Medrol) 60 mg Q12 IV Last administered on 01/02/19at 10:12; Admin Dose 60 MG; Start 12/28/18 at 09:00 Lorazepam (Ativan) 0.5 mg Q6H PRN PO ANXIETY; Start 12/28/18 at 13:00 Famotidine (Pepcid) 20 mg Q12 PO Last administered on 01/02/19at 10:13; Admin Dose 20 MG; Start 12/28/18 at 21:00 Diltiazem HCl (Cardizem Cd) 120 mg BID PO Last administered on 01/02/19at 10:13; Admin Dose 120 MG; Start 12/29/18 at 14:30 Loperamide HCl (Imodium Cap) 2 mg Q6 PRN PO DIARRHEA Last administered on 12/29/18at 23:14; Admin Dose 2 MG; Start 12/29/18 at 17:30 Ceftriaxone Sodium 50 ml @ 100 mls/hr Q24H IVPB Last administered on 01/02/19at 17:29; Admin Dose 100 MLS/HR; Start 12/29/18 at 18:00 Enoxaparin Sodium (Lovenox) 40 mg DAILY SC Last administered on 01/02/19at 10:53; Admin Dose 40 MG; Start 12/30/18 at 09:00 ELIZABET GRAY MD Jan 02, 2019 18:54
[2019-01-03] VITALS (11 sets, daily range): BP systolic 131–149; BP diastolic 64–87; PULSE 69–101; RESP 18
[2019-01-03] MEDS: FAMOTIDINE 20 MG TAB PO SCH ×2 (09:35→20:13)
[2019-01-03] MEDS: METHYLPREDNISOLONE 125 MG INJ IV SCH (09:35)
[2019-01-03] MEDS: DILTIAZEM (CD) 120 MG CAP PO SCH ×2 (09:36→20:13)
[2019-01-03] MEDS: ENOXAPARIN 40 MG/0.4 ML SYG SC SCH (09:59)
--- NOTE | 2019-01-03 12:59 | CONS ---
Assessment/Plan Assessment/Plan Assessment/Plan (Daily) 1. Prerenal azotemia 2. acute COPD exacerbation 3. H/O COPD 4. H/o Pneumothorax s/p previous Chest tube placement 4. H/O HTN 5. H/o HL 6. H/o Smoking Plan: IV solumedrol 60mg BID , watch for BUN , IV ceftriaxone, Renally dose all abx and monitor electrolytes BP stable, Cardizem for rate control BUN/Cr normal, Electrolytes stable Will follow up Consultation Date/Type/Reason Admit Date/Time Dec 27, 2018 at 21:18 Initial Consult Date 12/29/18 Type of Consult NEPHROLOGY Requesting Provider: JORGE HANNA MD Date/Time of Note DATE: 01/03/19 TIME: 12:59 24 HR Interval Summary Free Text/Dictation BUN/Cr 28/0.79, BP stable, afebrile, no compalints, SOB better Exam/Review of Systems Exam Vitals Vital Signs Date Temp Pulse Resp B/P (MAP) Pulse Ox O2 O2 Flow FiO2 Time Delivery Rate 01/03/19 82 12:25 01/03/19 97.9 18 140/81 96 11:44 (100) 01/03/19 Nasal 2.0 09:45 Cannula Intake and Output 01/02/19 01/02/19 01/03/19 1515:00 23:00 07:00 IntakeIntake Total 850 ml 600 ml BalanceBalance 850 ml 600 ml Exam Constitutional: alert, awake, no acute distress Respiratory: congested cough, diminished breath sounds, wheezing Cardiovascular: regular rate and rhythm, nl pulses Gastrointestinal: soft, non-tender Musculoskeletal: nl extremities to inspection Extremities: normal pulses 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, nl mental status, nl speech, nl strength Results Result Diagram: 01/03/19 1119 01/03/19 1118 Results 24hrs Laboratory Tests Test 01/03/19 11:18 01/03/19 11:19 Sodium Level 140 Potassium Level 3.8 Chloride Level 100 Carbon Dioxide Level 29 Anion Gap 11 Blood Urea Nitrogen 28 H Creatinine 0.79 Est Glomerular Filtrat Rate mL/min > 60 Glucose Level 163 Calcium Level 9.6 White Blood Count 13.4 H Red Blood Count 4.51 L Hemoglobin 14.4 Hematocrit 42.4 Mean Corpuscular Volume 94.0 Mean Corpuscular Hemoglobin 31.9 Mean Corpuscular Hemoglobin Concent 34.0 Red Cell Distribution Width 13.8 Platelet Count 245 Mean Platelet Volume 10.5 H Immature Granulocytes % 2.500 H Neutrophils % 84.4 H Lymphocytes % 7.4 L Monocytes % 5.3 Eosinophils % 0.0 Basophils % 0.4 Nucleated Red Blood Cells % 0.0 Immature Granulocytes # 0.340 H Neutrophils # 11.3 H Lymphocytes # 1.0 Monocytes # 0.7 Eosinophils # 0.0 Basophils # 0.1 Nucleated Red Blood Cells # 0.0 Medications Medication Current Medications IV Flush (NS 3 ml) 3 ml PER PROTOCOL IV ; Start 12/27/18 at 21:30 Ondansetron HCl (Zofran Inj) 4 mg Q6H PRN IV NAUSEA/VOMITING; Start 12/27/18 at 21:30 Acetaminophen (Tylenol Tab) 650 mg Q6H PRN PO .PAIN 1-3 OR TEMP; Start 12/27/18 at 21:30 Morphine Sulfate (morphine) 2 mg Q4H PRN IV .PAIN 7-10 Last administered on 12/29/18at 00:20; Admin Dose 2 MG; Start 12/27/18 at 21:30 Albuterol (Proventil 0.083% (Neb)) 1.25 mg Q6H RESP THERAPY PRN HHN shortness of breath; Start 12/27/18 at 21:30 Methylprednisolone Sodium Succinate (Solu-Medrol) 60 mg Q12 IV Last administered on 01/03/19at 09:35; Admin Dose 60 MG; Start 12/28/18 at 09:00 Lorazepam (Ativan) 0.5 mg Q6H PRN PO ANXIETY; Start 12/28/18 at 13:00 Famotidine (Pepcid) 20 mg Q12 PO Last administered on 01/03/19 09:35; Admin Dose 20 MG; Start 12/28/18 at 21:00 Diltiazem HCl (Cardizem Cd) 120 mg BID PO Last administered on 01/03/19at 09:36; Admin Dose 120 MG; Start 12/29/18 at 14:30 Loperamide HCl (Imodium Cap) 2 mg Q6 PRN PO DIARRHEA Last administered on 12/29/18at 23:14; Admin Dose 2 MG; Start 12/29/18 at 17:30 Ceftriaxone Sodium 50 ml @ 100 mls/hr Q24H IVPB Last administered on 01/02/19at 17:29; Admin Dose 100 MLS/HR; Start 12/29/18 at 18:00 Enoxaparin Sodium (Lovenox) 40 mg DAILY SC Last administered on 01/03/19at 09:59; Admin Dose 40 MG; Start 12/30/18 at 09:00 ELIZABET GRAY MD Jan 03, 2019 12:59
--- NOTE | 2019-01-03 14:36 | PN ---
Date/Time of Note Date/Time of Note DATE: 01/03/19 TIME: 14:36 Assessment/Plan VTE Prophylaxis Risk score (from [facility])>0 risk: 3 SCD applied (from Nsg): No Lines/Catheters IV Catheter Type (from Nrsg): Saline Lock Urinary Cath still in place: No Assessment/Plan Assessment/Plan Tachyarrhythmia - - per cardio COPD exacerbation - continue breathing treatments and IV steroids - monitor clinically Hypertension Pneumothorax status post chest tube August [address] moyer Result Diagram: 01/03/19 1119 01/03/19 1118 Results 24hrs Laboratory Tests Test 01/03/19 11:18 01/03/19 11:19 Sodium Level 140 Potassium Level 3.8 Chloride Level 100 Carbon Dioxide Level 29 Anion Gap 11 Blood Urea Nitrogen 28 H Creatinine 0.79 Est Glomerular Filtrat Rate mL/min > 60 Glucose Level 163 Calcium Level 9.6 White Blood Count 13.4 H Red Blood Count 4.51 L Hemoglobin 14.4 Hematocrit 42.4 Mean Corpuscular Volume 94.0 Mean Corpuscular Hemoglobin 31.9 Mean Corpuscular Hemoglobin Concent 34.0 Red Cell Distribution Width 13.8 Platelet Count 245 Mean Platelet Volume 10.5 H Immature Granulocytes % 2.500 H Neutrophils % 84.4 H Lymphocytes % 7.4 L Monocytes % 5.3 Eosinophils % 0.0 Basophils % 0.4 Nucleated Red Blood Cells % 0.0 Immature Granulocytes # 0.340 H Neutrophils # 11.3 H Lymphocytes # 1.0 Monocytes # 0.7 Eosinophils # 0.0 Basophils # 0.1 Nucleated Red Blood Cells # 0.0 Exam/Review of Systems Exam Vitals Vital Signs Date Temp Pulse Resp B/P (MAP) Pulse Ox O2 O2 Flow FiO2 Time Delivery Rate 01/03/19 2.0 13:29 01/03/19 82 12:25 01/03/19 97.9 18 140/81 96 11:44 (100) 01/03/19 Nasal 09:45 Cannula Intake and Output 01/02/19 01/02/19 01/03/19 1515:00 23:00 07:00 IntakeIntake Total 850 ml 600 ml BalanceBalance 850 ml 600 ml Results Results 24hrs Laboratory Tests Test 01/03/19 11:18 01/03/19 11:19 Sodium Level 140 Potassium Level 3.8 Chloride Level 100 Carbon Dioxide Level 29 Anion Gap 11 Blood Urea Nitrogen 28 H Creatinine 0.79 Est Glomerular Filtrat Rate mL/min > 60 Glucose Level 163 Calcium Level 9.6 White Blood Count 13.4 H Red Blood Count 4.51 L Hemoglobin 14.4 Hematocrit 42.4 Mean Corpuscular Volume 94.0 Mean Corpuscular Hemoglobin 31.9 Mean Corpuscular Hemoglobin Concent 34.0 Red Cell Distribution Width 13.8 Platelet Count 245 Mean Platelet Volume 10.5 H Immature Granulocytes % 2.500 H Neutrophils % 84.4 H Lymphocytes % 7.4 L Monocytes % 5.3 Eosinophils % 0.0 Basophils % 0.4 Nucleated Red Blood Cells % 0.0 Immature Granulocytes # 0.340 H Neutrophils # 11.3 H Lymphocytes # 1.0 Monocytes # 0.7 Eosinophils # 0.0 Basophils # 0.1 Nucleated Red Blood Cells # 0.0 Medications Medication Current Medications IV Flush (NS 3 ml) 3 ml PER PROTOCOL IV ; Start 12/27/18 at 21:30 Ondansetron HCl (Zofran Inj) 4 mg Q6H PRN IV NAUSEA/VOMITING; Start 12/27/18 at 21:30 Acetaminophen (Tylenol Tab) 650 mg Q6H PRN PO .PAIN 1-3 OR TEMP; Start 12/27/18 at 21:30 Morphine Sulfate (morphine) 2 mg Q4H PRN IV .PAIN 7-10 Last administered on 12/29/18at 00:20; Admin Dose 2 MG; Start 12/27/18 at 21:30 Albuterol (Proventil 0.083% (Neb)) 1.25 mg Q6H RESP THERAPY PRN HHN shortness of breath; Start 12/27/18 at 21:30 Methylprednisolone Sodium Succinate (Solu-Medrol) 60 mg Q12 IV Last administered on 01/03/19at 09:35; Admin Dose 60 MG; Start 12/28/18 at 09:00 Lorazepam (Ativan) 0.5 mg Q6H PRN PO ANXIETY; Start 12/28/18 at 13:00 Famotidine (Pepcid) 20 mg Q12 PO Last administered on 01/03/19at 09:35; Admin Dose 20 MG; Start 12/28/18 at 21:00 Diltiazem HCl (Cardizem Cd) 120 mg BID PO Last administered on 01/03/19 09:36; Admin Dose 120 MG; Start 12/29/18 at 14:30 Loperamide HCl (Imodium Cap) 2 mg Q6 PRN PO DIARRHEA Last administered on 12/29/18 23:14; Admin Dose 2 MG; Start 12/29/18 at 17:30 Ceftriaxone Sodium 50 ml @ 100 mls/hr Q24H IVPB Last administered on 01/02/19 17:29; Admin Dose 100 MLS/HR; Start 12/29/18 at 18:00 Enoxaparin Sodium (Lovenox) 40 mg DAILY SC Last administered on 01/03/19 09:59; Admin Dose 40 MG; Start 12/30/18 at 09:00 DERRIKC ENCARNACION Jan 03, 2019 14:36
[2019-01-03] MEDS: CEFTRIAXONE 1 GM/50 ML (PMX) 50 ML IVPB SCH (17:10)
[2019-01-03] MEDS: predniSONE 20 MG TAB PO SCH (20:13)
[2019-01-04] VITALS (8 sets, daily range): BP systolic 134–160; BP diastolic 81–94; PULSE 60–96; RESP 18–20
[2019-01-04] MEDS: FAMOTIDINE 20 MG TAB PO SCH (08:17)
[2019-01-04] MEDS: predniSONE 20 MG TAB PO SCH (08:17)
[2019-01-04] MEDS: DILTIAZEM (CD) 120 MG CAP PO SCH (08:18)
[2019-01-04] MEDS: ENOXAPARIN 40 MG/0.4 ML SYG SC SCH (09:00)
--- NOTE | 2019-01-04 13:11 | CONS ---
Assessment/Plan Assessment/Plan Hospital Course (Demo Recall) Tachyarrhythmia With preserved ejection fraction COPD exacerbation Hypertension Pneumothorax status post chest tube August 2018 -Heart rate trend overall remained stable. Likely multifocal atrial tachycardia and improved after Cardizem. We will continue as tolerated -Continue treatment of COPD -DC planning Consultation Date/Type/Reason Admit Date/Time Dec 27, 2018 at 21:18 Initial Consult Date 12/29/18 Type of Consult Cardiology Requesting Provider: JORGE HANNA MD Date/Time of Note DATE: 01/04/19 TIME: 13:09 24 HR Interval Summary Free Text/Dictation Feeling better, denies palpitations, shortness of breath or chest pain Exam/Review of Systems Vital Signs Vitals Vital Signs Date Temp Pulse Resp B/P (MAP) Pulse Ox O2 O2 Flow FiO2 Time Delivery Rate 01/04/19 98.5 77 20 134/85 96 11:53 (101) 01/04/19 Nasal 2.0 04:00 Cannula Intake and Output 01/03/19 01/03/19 01/04/19 1515:00 23:00 07:00 IntakeIntake Total 900 ml 120 ml BalanceBalance 900 ml 120 ml Exam Constitutional: alert, oriented (No apparent distress) Head: normocephalic Respiratory: other (Coarse breath sounds bilaterally, no wheezing) Cardiovascular: regular rate and rhythm (S1-S2) Gastrointestinal: soft, non-tender, bowel sounds Extremities: other (No significant edema) Labs Result Diagram: 01/03/19 1119 01/03/19 1118 Medications Medications Current Medications IV Flush (NS 3 ml) 3 ml PER PROTOCOL IV ; Start 12/27/18 at 21:30 Ondansetron HCl (Zofran Inj) 4 mg Q6H PRN IV NAUSEA/VOMITING; Start 12/27/18 at 21:30 Acetaminophen (Tylenol Tab) 650 mg Q6H PRN PO .PAIN 1-3 OR TEMP; Start 12/27/18 at 21:30 Morphine Sulfate (morphine) 2 mg Q4H PRN IV .PAIN 7-10 Last administered on 12/29/18at 00:20; Admin Dose 2 MG; Start 12/27/18 at 21:30 Albuterol (Proventil 0.083% (Neb)) 1.25 mg Q6H RESP THERAPY PRN HHN shortness of breath; Start 12/27/18 at 21:30 Lorazepam (Ativan) 0.5 mg Q6H PRN PO ANXIETY; Start 12/28/18 at 13:00 Famotidine (Pepcid) 20 mg Q12 PO Last administered on 01/04/19 08:17; Admin Dose 20 MG; Start 12/28/18 at 21:00 Diltiazem HCl (Cardizem Cd) 120 mg BID PO Last administered on 01/04/19 08:18; Admin Dose 120 MG; Start 12/29/18 at 14:30 Loperamide HCl (Imodium Cap) 2 mg Q6 PRN PO DIARRHEA Last administered on 12/29/18 23:14; Admin Dose 2 MG; Start 12/29/18 at 17:30 Ceftriaxone Sodium 50 ml @ 100 mls/hr Q24H IVPB Last administered on 01/03/19 17:10; Admin Dose 100 MLS/HR; Start 12/29/18 at 18:00 Enoxaparin Sodium (Lovenox) 40 mg DAILY SC Last administered on 01/03/19 09:59; Admin Dose 40 MG; Start 12/30/18 at 09:00 Prednisone (Prednisone) 40 mg DAILY PO Last administered on 01/04/19 08:17; Admin Dose 40 MG; Start 01/03/19 at 20:00 Salo Franco DO Jan 04, 2019 13:11
--- NOTE | 2019-01-04 15:46 | CONS ---
Assessment/Plan Assessment/Plan Assessment/Plan (Daily) 1. Prerenal azotemia 2. acute COPD exacerbation 3. H/O COPD 4. H/o Pneumothorax s/p previous Chest tube placement 4. H/O HTN 5. H/o HL 6. H/o Smoking Plan: IV solumedrol, watch for BUN BP stable, Cardizem for rate control BUN/Cr normal, Electrolytes stable Will follow up Consultation Date/Type/Reason Admit Date/Time Dec 27, 2018 at 21:18 Initial Consult Date 12/29/18 Type of Consult NEPHROLOGY Requesting Provider: JORGE HANNA MD Date/Time of Note DATE: 01/04/19 TIME: 15:46 Exam/Review of Systems Exam Vitals Vital Signs Date Temp Pulse Resp B/P (MAP) Pulse Ox O2 O2 Flow FiO2 Time Delivery Rate 01/04/19 2.0 14:28 01/04/19 78 12:01 01/04/19 98.5 20 134/85 96 11:53 (101) 01/04/19 Nasal 04:00 Cannula Intake and Output 01/03/19 01/03/19 01/04/19 1414:59 22:59 06:59 IntakeIntake Total 900 ml 120 ml BalanceBalance 900 ml 120 ml Results Result Diagram: 01/03/19 1119 01/03/19 1118 Medications Medication Current Medications IV Flush (NS 3 ml) 3 ml PER PROTOCOL IV ; Start 12/27/18 at 21:30 Ondansetron HCl (Zofran Inj) 4 mg Q6H PRN IV NAUSEA/VOMITING; Start 12/27/18 at 21:30 Acetaminophen (Tylenol Tab) 650 mg Q6H PRN PO .PAIN 1-3 OR TEMP; Start 12/27/18 at 21:30 Morphine Sulfate (morphine) 2 mg Q4H PRN IV .PAIN 7-10 Last administered on 12/29/18at 00:20; Admin Dose 2 MG; Start 12/27/18 at 21:30 Albuterol (Proventil 0.083% (Neb)) 1.25 mg Q6H RESP THERAPY PRN HHN shortness of breath; Start 12/27/18 at 21:30 Lorazepam (Ativan) 0.5 mg Q6H PRN PO ANXIETY; Start 12/28/18 at 13:00 Famotidine (Pepcid) 20 mg Q12 PO Last administered on 01/04/19 08:17; Admin Dose 20 MG; Start 12/28/18 at 21:00 Diltiazem HCl (Cardizem Cd) 120 mg BID PO Last administered on 01/04/19 08:18; Admin Dose 120 MG; Start 12/29/18 at 14:30 Loperamide HCl (Imodium Cap) 2 mg Q6 PRN PO DIARRHEA Last administered on 12/29/18 23:14; Admin Dose 2 MG; Start 12/29/18 at 17:30 Ceftriaxone Sodium 50 ml @ 100 mls/hr Q24H IVPB Last administered on 01/03/19 17:10; Admin Dose 100 MLS/HR; Start 12/29/18 at 18:00 Enoxaparin Sodium (Lovenox) 40 mg DAILY SC Last administered on 01/03/19 09:59; Admin Dose 40 MG; Start 12/30/18 at 09:00 Prednisone (Prednisone) 40 mg DAILY PO Last administered on 01/04/19 08:17; Admin Dose 40 MG; Start 01/03/19 at 20:00 ELIZABET GRAY MD Jan 04, 2019 15:46
--- NOTE | 2019-01-04 15:51 | PDOCDIS ---
Discharge Instructions CONDITION [id number] Patient Condition: [id number] Stable HOME CARE INSTRUCTIONS: [id number] Diet Instructions: [id number] ACTIVITY: [id number] Activity Restrictions: [id number] Slowly Increase Activity Rest between Activity Avoid heavy lifting Do not operate Machinery Do not operate Power Tool Avoid Heavy Housework [id number] Bathing Restrictions: [id number] FOLLOW UP/APPOINTMENTS Follow-up Plan FU with primary x 1 week Fu with CARDIOLOGY as recommended Call 911 or got to the nearest hospital if symptoms get worse Dw DERRICK Salas Jan 04, 2019 15:51
[2019-01-04] MEDS: CEFTRIAXONE 1 GM/50 ML (PMX) 50 ML IVPB SCH (17:29)
[2019-01-04] MEDS ORDERED: DILT120C77 PO (19:04)
== END 2019-01-04 18:42 | disposition home or self-care (01) | DRG 190 ==
LOC: E/R 20:36 → 6WM 21:18
PROVIDERS: ADMIT Internal Medicine; ATTEND Internal Medicine
DX: J44.1 Chronic obstructive pulmonary disease with (acute) exacerbation (principal); J96.21 Acute and chronic respiratory failure with hypoxia; I47.1 Supraventricular tachycardia; J93.9 Pneumothorax, unspecified; I48.91 Unspecified atrial fibrillation; I10 Essential (primary) hypertension; E86.0 Dehydration; E78.5 Hyperlipidemia, unspecified; Z87.891 Personal history of nicotine dependence
CPT/HCPCS: 36415; 36600; 71045; 80048; 80053; 82550; 82553; 82803; 83036; 83690; 83735; 83880; 84484; 85025; 93005; 93306; 94644; 96374; 96375; J0696; J1650; J2060; J2270; J2930; J3475; J7040; J7512